=== PATIENT | female | born 1935 | race Caucasian/White ===

== ENCOUNTER 2017-09-21 10:45 | Inpatient (IN) | payer MEDICARE ==
[2017-09-21 11:17] LABS: #Lymphocytes 1.5 thou/uL (1.20-3.40); #Monocytes 0.7 thou/uL (0.11-0.59); #Neutrophils 6.5 thou/uL (1.40-6.50); %Basophils 0.4 % (0.0-1.0); %Eosinophils 0.2 % (0.0-10.0); %Lymphocytes 16.9 % (21.0-51.0); %Monocytes 7.7 % (0.0-10.0); %Neutrophils 74.8 % (42.0-75.0); Hemoglobin 13.6 g/dL (12.0-16.0); Mean Corpuscular HGB CONC 31.6 g/dL (32.0-36.0); Mean Corpuscular Hemoglobin 29.6 pg (27.0-31.0); Mean Corpuscular Volume 93.8 fl (81.0-99.0); Mean Platelet Volume 6.3 fL (7.4-10.4); Platelet Count 369 thou/uL (130-400); Red Blood Cell (RBC) Count 4.61 mill/uL (4.20-5.40); White Blood Cell (WBC) Count 8.7 thou/uL (4.8-10.8)
[2017-09-21 11:38] LABS: ALT (SGPT) 37 U/L (8-55); AST (SGOT) 28 U/L (5-34); Albumin 3.8 g/dL (3.4-4.8); Alkaline Phosphatase 135 U/L (40-150); Anion Gap 19 mmol/L (10-20); BUN (Urea Nitrogen) 19 mg/dL (9.8-20.1); Bilirubin, Total 0.7 mg/dL (0.2-1.2); Calc. Creatinine Clearance 0 mL/min (70-130); Calcium 8.6 mg/dL (7.8-10.44); Carbon Dioxide 17 mmol/L (23-31); Chloride 106 mmol/L (98-107); Estimated GFR-MDRD 45; Globulin 3.4 g/dL (2.4-3.5); Glucose 210 mg/dL (83-110); Potassium 5.3 mmol/L (3.5-5.1); Protein, Total 7.2 g/dL (6.0-8.3); Sodium 137 mmol/L (136-145)
[2017-09-21 11:43] LABS: CKMB 5.2 ng/mL (0-6.6); Troponin I 0.079 ng/mL (< 0.028)
--- NOTE | 2017-09-21 11:44 | RAD ---
CHEST ONE VIEW: HISTORY: An 82-year-old female with a history of dyspnea, shortness of breath, and lower extremity swelling. FINDINGS: There is cardiomegaly with bilateral vascular congestion, interstitial edema, and small pleural effus ions, evidence for congestive heart failure with minimal pulmonary edema. There is a deformity of th e left humeral neck region, which has the appearance of old trauma. Bone demineralization. IMPRESSION: Evidence for congestive heart failure and interstitial pulmonary edema. Continued short term followup for clearing or stability. POS: [facility]
[2017-09-21] MEDS ORDERED: Nitroglycerin 2% Ointment 1 INCH/1 GM Packet ONE (12:29)
[2017-09-21] MEDS ORDERED: Furosemide 40 MG/4 ML VIAL ONE (12:29)
[2017-09-21 15:06] LABS: Troponin I 0.088 ng/mL (< 0.028)
[2017-09-21] MEDS ORDERED: Loperamide HCl 2 MG CAP PO PRN (16:18)
[2017-09-21] MEDS ORDERED: Dextrose 50% Abboject 50 ML SYRINGE SLOW IVP PRN (16:24)
[2017-09-21] MEDS ORDERED: Dextrose 5% in Water 1,000 ML IV PRN (16:24)
[2017-09-21 18:12] LABS: Troponin I 0.088 ng/mL (< 0.028)
[2017-09-21] MEDS: Heparin 5,000 UNITS/ML VIAL SC SCH (21:21)
[2017-09-21] MEDS: Famotidine 20 MG TAB PO SCH (21:21)
[2017-09-22 05:51] LABS: Anion Gap 18 mmol/L (10-20); BUN (Urea Nitrogen) 21 mg/dL (9.8-20.1); Calc. Creatinine Clearance 31 mL/min (70-130); Calcium 8.2 mg/dL (7.8-10.44); Carbon Dioxide 19 mmol/L (23-31); Chloride 107 mmol/L (98-107); Estimated GFR-MDRD 49; Glucose 149 mg/dL (83-110); Potassium 4.2 mmol/L (3.5-5.1); Sodium 140 mmol/L (136-145)
[2017-09-22] MEDS: Furosemide 40 MG/4 ML VIAL SLOW IVP SCH ×2 (05:51→15:23)
--- NOTE | 2017-09-22 08:10 | HP ---
DATE OF ADMISSION: 09/21/2017 CHIEF COMPLAINT: Shortness of breath and fatigue. HISTORY OF PRESENT ILLNESS: The patient is an 82-year-old female who presented with 1 week history of peripheral edema along with shortness of breath, which was gradually getting worse. She became more fatigued. Her appetite is basically gone. She did not eat any breakfast today, because she was not hungry. She had some chest pains on and off lasting less than a minute during this week, but nothing major according to her. She did not have any clammy skin, nausea or vomiting, but she s tarted having some diarrhea just prior to this in the emergency room evaluation. She came to the ER for diagnostic evaluation and looking physician's attention. [facility] son, Mr. Diego Rajput. PAST MEDICAL HISTORY: Positive for: 1. Rheumatoid arthritis. 2. Diabetes mellitus type 2. 3. Osteoporosis. 4. Chronic diarrhea. 5. Hypertension. 6. Coronary artery disease and status post stenting. PAST SURGICAL HISTORY: 1. Cataract surgery. 2. Foot surgery. 3. Cardiac catheterization with stenting. MEDICATIONS: Fluoxetine 20 mg once a day, Imodium A-D p.r.n. for diarrhea, Enbrel subcutaneous I bel ieve it is every 2 weeks injection, Prolia twice a year, Hydroxychloroquine 200 mg once a day, aspiri n 81 mg once a day, folic acid 400 mg once a day, Synthroid 50 mcg once a day, vitamin D 2000 units 1 daily, multivitamin 1 a day, lisinopril 30 mg once a day. ALLERGIES: None. FAMILY HISTORY: Her father had CVA. Her mother had diabetes. Both of them gone. SOCIAL HISTORY: She still smokes. She smoked for a very very long time since her son remembers. Asmita amos smokes usually about 10 cigarettes per day, now she is down to 2. REVIEW OF SYSTEMS: Constitutional: Negative for fever and chills. Eyes: Negative for eye pain and eye discharge. ENT: Negative for nasal congestion and epistaxis. Cardiovascular: Positive for ch est pains and some palpitations. Respiratory: Positive for shortness of breath and positive for cou gh. Gastrointestinal: Positive for diarrhea. Negative for nausea, vomiting, abdominal pain. Muscu loskeletal: Positive for pain in both hands and feet. Skin: Negative for rash or erythema. Neurol ogic: Negative for syncope and dizziness. Endocrine: Positive for diabetes mellitus. Hemolymphati c: Negative for easy bruising or clotting abnormalities. Psychiatric: Negative for depression or anxiety. PHYSICAL EXAMINATION: VITAL SIGNS: Her blood pressure is 174/72, temperature is 97.9, pulse is 84, respiratory rate is 17, O2 saturations 100% on room air. HEENT: Head is atraumatic, normocephalic. She looks emaciated. Eyes: PERRLA. Sclerae nonicteric. Oral mucosa is moist. NECK: Supple. Mild JVDs 1+ bilaterally. LUNGS: Breath sounds, slightly diminished at both bases with few crackles, no wheezing, no rales. HEART: S1, S2, regular. No S3, no S4. ABDOMEN: Soft, nontender, nondistended. Bowel sounds are present, no organomegaly. EXTREMITIES: Approximately 2+ peripheral edema around both ankles, nothing above the knee level. Pu lses are diminished on both tibialis posterior and dorsalis pedis arteries. NEUROLOGICAL EXAMINATION: Showed alert and oriented x4. There is not any sensorimotor deficits pres ent. Cranial nerves are intact. MUSCULOSKELETAL: Evaluation showed severely supinated fingers in both hands, contracted. LABORATORY DATA AND X-RAY FINDINGS: Showed a white count of 8.7, hemoglobin 13.6, hematocrit 43.2, p latelet count is 369. The rest of CBC within normal limits. Chemistry showed sodium of 137, potassi um 5.3, chloride 106, CO2 17, BUN 19, creatinine 1.16, glucose 210. Troponin I 0.079 and 0.088. BNP 1405.6 and the rest of chemistry within normal limits. EKG showed normal sinus rhythm with left axi s deviation and nonspecific ST and T-wave abnormalities with prolonged QT at 432, corrected to the ri ght is 492. Chest x-ray showed some pulmonary congestion and mild cardiomegaly. IMPRESSION: 1. New onset of congestive heart failure. 2. History of coronary artery disease with stenting. 3. Rheumatoid arthritis. 4. Chronic diarrhea. 5. Osteoporosis. 6. Diabetes mellitus type 2. 7. Chronic smoker. PLAN: Full admission to telemetry floor. Condition is fair. Activity is ad libitum. Clinically, she looks good. She is going to be DNR. This was discussed with her and her son who is present duri ng my visit in the room. We will Hep-Lock her, put her on IV Lasix, she had one dose in the emergenc y room. She will be on 40 mg IV push q.12 hours and she will be on aspirin 81 mg daily. We will sta rt her on her lisinopril 30 mg once a day and she will have p.r.n. Imodium for her chronic diarrhea. Also, we will have additional 2 sets of cardiac enzymes and echocardiogram. Senior Peoplesoft Developer, Dr. Sneha gillette will be consulted and will have walking program started.
[2017-09-22] MEDS: Aspirin 81 mg Enteric Coated Tablet PO SCH (09:15)
[2017-09-22] MEDS: Lisinopril 20 MG TAB PO SCH (09:15)
[2017-09-22] MEDS: Heparin 5,000 UNITS/ML VIAL SC SCH ×3 (09:16→23:01)
[2017-09-22] MEDS ORDERED: Diabetic Tussin 200 MG/10 ML UDCUP PO PRN (11:34)
[2017-09-22] MEDS ORDERED: hydrALAZINE 20 MG/ML VIAL SLOW IVP PRN (11:34)
[2017-09-22] MEDS ORDERED: Sodium Chloride 0.65% Nasal 44 ML BOT EA NARE PRN (11:34)
[2017-09-22] MEDS ORDERED: Temazepam 15 MG CAP PO PRN (11:34)
[2017-09-22] MEDS ORDERED: Eucerin (Mineral Oil/Petrolatum,White) 30 gm Jar TOP PRN (11:34)
[2017-09-22] MEDS ORDERED: Artificial Tears 18 DROP/0.9 ML EA EYE PRN (11:34)
[2017-09-22] MEDS ORDERED: traMADol HCl 50 MG TAB PO PRN (11:34)
[2017-09-22] MEDS ORDERED: Loratadine 10 MG TAB PO PRN (11:34)
[2017-09-22] MEDS ORDERED: Mag-Al 1200 mg/1200 mg/30 ML UDCUP PO PRN (11:34)
[2017-09-22] MEDS ORDERED: Ondansetron ODT 4 MG TAB PO PRN (11:34)
[2017-09-22] MEDS ORDERED: Chloraseptic Spray 180 ml Bottle PO PRN (11:34)
[2017-09-22] MEDS ORDERED: Acetaminophen 325 MG TAB PO PRN (11:34)
[2017-09-22] MEDS ORDERED: Senokot 8.6 MG TAB PO PRN (11:34)
[2017-09-22] MEDS ORDERED: Ondansetron HCl/PF 4 MG/2 ML Vial IVP PRN (11:34)
[2017-09-22] MEDS ORDERED: Milk Of Magnesia 30 ML UDCUP PO PRN (11:34)
--- NOTE | 2017-09-22 12:27 | PDOC.PN ---
- Subjective Encounter Start Date: 09/22/17 Encounter Start Time: 08:15 -: old records requested/rev Patient seen and examined. No new complaints. No overnight events - Objective Resuscitation Status: Resuscitation Status DNR:Do Not Resuscitate MAR Reviewed: Yes Vital Signs & Weight: Vital Signs (12 hours) Temp Pulse Resp BP Pulse Ox 09/22/17 07:30 97.9 F 80 18 92 L 09/22/17 07:15 97.9 F 80 18 168/75 H 92 L 09/22/17 03:15 97.6 F 84 18 177/79 H 98 Weight Admit Weight 103 lb Weight 102 lb 9.6 oz I&O: 09/21/17 09/22/17 09/23/17 06:59 06:59 06:59 Intake Total 260 Output Total 270 Balance -10 Result Diagrams: 09/21/17 11:13 09/22/17 05:22 Additional Labs: Accuchecks 09/21/17 09/21/17 20:08 16:33 POC Glucose 154 H 148 H Phys Exam - Physical Examination Constitutional: NAD HEENT: PERRLA, moist MMs, sclera anicteric Neck: no JVD, supple Respiratory: no wheezing, no rales, no rhonchi Cardiovascular: RRR, no significant murmur, no rub Gastrointestinal: soft, non-tender, no distention, positive bowel sounds Musculoskeletal: pulses present, edema present Neurological: non-focal, normal sensation Lymphatic: no nodes Psychiatric: normal affect Skin: no rash, normal turgor Dx/Plan (1) Acute CHF Code(s): I50.9 - HEART FAILURE, UNSPECIFIED Status: Acute (2) Demand ischemia Code(s): I24.8 - OTHER FORMS OF ACUTE ISCHEMIC HEART DISEASE Status: Acute (3) Tobacco abuse Code(s): Z72.0 - TOBACCO USE Status: Acute (4) CKD (chronic kidney disease) stage 3, GFR 30-59 ml/min Code(s): N18.3 - CHRONIC KIDNEY DISEASE, STAGE 3 (MODERATE) Status: Chronic (5) Diabetes type 2, controlled Code(s): E11.9 - TYPE 2 DIABETES MELLITUS WITHOUT COMPLICATIONS Status: Chronic (6) Osteoporosis Code(s): M81.0 - AGE-RELATED OSTEOPOROSIS W/O CURRENT PATHOLOGICAL FRACTURE Status: Chronic (7) Rheumatoid arthritis Code(s): M06.9 - RHEUMATOID ARTHRITIS, UNSPECIFIED Status: Chronic - Plan cont current plan of care, plan discussed w/ family * continue diuresis * echo pending * may need discharge planning to snu * medication reviewed as below * symptomatic treatment * based on echo will decide further plan * discussed with family. Review of Systems - Review of Systems ENT: negative: Ear Pain, Ear Discharge, Nose Pain, Nose Discharge, Nose Congestion, Mouth Pain, Mouth Swelling, Throat Pain, Throat Swelling, Other Respiratory: negative: Cough, Dry, Shortness of Breath, Hemoptysis, SOB with Excertion, Pleuritic Pain, Sputum, Wheezing Cardiovascular: negative: chest pain, palpitations, orthopnea, paroxysmal nocturnal dyspnea, edema, light headedness, other Gastrointestinal: negative: Nausea, Vomiting, Abdominal Pain, Diarrhea, Constipation, Melena, Hematochezia, Other Genitourinary: negative: Dysuria, Frequency, Incontinence, Hematuria, Retention , Other Musculoskeletal: negative: Neck Pain, Shoulder Pain, Arm Pain, Back Pain, Hand Pain, Leg Pain, Foot Pain, Other - Medications/Allergies Allergies/Adverse Reactions: Allergies Allergy/AdvReac Type Severity Reaction Status Date / Time No Known Allergies Allergy Unverified 09/21/17 16:57 Medications: Current Medications Acetaminophen (Tylenol) 650 mg PO Q4H PRN PRN Reason: Headache/Fever or Mild Pain Al Hydroxide/Mg Hydroxide (Maalox) 15 ml PO Q4H PRN PRN Reason: Heartburn or Indigestion Artificial Tears (Tears Naturale) 0 drop EA EYE PRN PRN PRN Reason: Dry Eyes Aspirin (Ecotrin) 81 mg PO DAILY [facility] Last Admin: 09/22/17 09:15 Dose: 81 mg Dextrose/Water (Dextrose 50%) 25 gm SLOW IVP PRN PRN PRN Reason: Hypoglycemia Famotidine (Pepcid) 20 mg PO 2100 [facility] Last Admin: 09/21/17 21:21 Dose: 20 mg Furosemide (Lasix) 40 mg SLOW IVP 0600,1400 [facility] Last Admin: 09/22/17 05:51 Dose: 40 mg Glucagon (Glucagon) 1 mg IM PRN PRN PRN Reason: Hypoglycemia Guaifenesin (Robitussin Sf) 200 mg PO Q4H PRN PRN Reason: Cough Heparin Sodium (Porcine) (Heparin) 5,000 units SC TID [facility] Last Admin: 09/22/17 09:16 Dose: 5,000 units Hydralazine HCl (Apresoline) 10 mg SLOW IVP Q4H PRN PRN Reason: Systolic BP > 180 Dextrose/Water (D5w) 1,000 mls @ 0 mls/hr IV .Q0M PRN; As Directed PRN Reason: Hypoglycemia Insulin Human Lispro (Humalog) 0 units SC .MILD SLIDING SCALE PRN PRN Reason: Mild Correctional Scale Lisinopril (Zestril) 30 mg PO DAILY [facility] Last Admin: 09/22/17 09:15 Dose: 30 mg Loperamide HCl (Imodium) 2 mg PO PRN PRN PRN Reason: Diarrhea/Loose Stools Last Admin: 09/21/17 17:41 Dose: 2 mg Loratadine (Claritin) 10 mg PO DAILYPRN PRN PRN Reason: Sinus Symptoms Magnesium Hydroxide (Milk Of Magnesium) 30 ml PO DAILYPRN PRN PRN Reason: Constipation Mineral Oil/White Petrolatum (Eucerin Cream) 0 gm TOP BIDPRN PRN PRN Reason: Dry Skin Ondansetron HCl (Zofran Odt) 4 mg PO Q6H PRN PRN Reason: Nausea/Vomiting Ondansetron HCl (Zofran) 4 mg IVP Q6H PRN PRN Reason: Nausea/Vomiting Phenol (Chloraseptic [place] 180 Ml Bot) 0 ml PO PRN PRN PRN Reason: Sore Throat Senna (Senokot) 2 tab PO HSPRN PRN PRN Reason: Constipation Sodium Chloride ([place] Nasal [place] 0.65%) 0 ml EA NARE QIDPRN PRN PRN Reason: Nasal Congestion Temazepam (Restoril) 15 mg PO HSPRN PRN PRN Reason: Insomnia Tramadol HCl (Ultram) 50 mg PO Q4H PRN PRN Reason: Moderate Pain (4-6)
[2017-09-22] MEDS: HumaLOG 300 UNITS/3 ML VIAL SC PRN (17:26)
--- NOTE | 2017-09-22 18:24 | CON ---
DATE OF SERVICE: 09/22/2017 REASON FOR CONSULTATION: Shortness of breath. HISTORY OF PRESENT ILLNESS: Ms. Rajput is a very pleasant 82-year-old white female who comes to the ospital for increasing shortness of breath and peripheral edema. She states that for the last week h as been getting worse gradually to the point where she had to come into the hospital yesterday. She has not been able to eat very well because of bloated abdomen and lower extremity edema. She has had some episodes of chest pain, which were described as a minute at that time, in random times. She britt s a history of coronary artery disease. She had a stent placed about 12 years ago in [facility]. S he was at home and apparently she had a syncopal spell. She was brought into the hospital with tropo nins drawn and they were elevated, so was taken to the catheterization lab and a stent was placed in an unknown artery. She never followed up with any pressurised container filler since then. She did the pressurised container filler in the hospital. PAST MEDICAL HISTORY: 1. Rheumatoid arthritis. 2. Type 2 diabetes. 3. Osteoporosis. 4. Chronic diarrhea. 5. Hypertension. 6. Coronary artery disease as above. 7. Tobacco abuse. PAST SURGICAL HISTORY: 1. Cataract surgery. 2. Foot surgery. 3. Cardiac catheterization with stenting as above. OUTPATIENT MEDICATIONS: Include, 1. Fluoxetine. 2. Imodium A-D 3. Enbrel. 4. Prolia twice a year. 5. Hydroxychloroquine. 6. Aspirin 81 day. 7. Folic acid. 8. Synthroid 50 mcg a day. 9. Vitamin D. 10. Multivitamin daily. 11. Lisinopril 30 mg a day. ALLERGIES: No known drug allergies. FAMILY HISTORY: Father with CVA. Mother with diabetes. SOCIAL HISTORY: Smoked for many, many years, about 10 cigarettes to half pack daily much less since she has been short of breath about two a day. REVIEW OF SYSTEMS: A 12-point review of systems was done and is all negative unless stated in the h istory of present illness. PHYSICAL EXAMINATION: VITAL SIGNS: Temperature 97.6, pulse 83, respiration rate 20, satting 92% on room air, blood pressur e 166/77. GENERAL: Awake, alert, oriented x3, in no distress. HEENT: Normocephalic and atraumatic. NECK: Supple. LUNGS: Mild crackles at bilateral bases. CARDIOVASCULAR: S1, S2, no S3, S4. There is a grade 3/6 systolic murmur at the right upper sternal border that radiates to the rest of the precordium mid to late peaking. ABDOMEN: Soft, positive bowel sounds. EXTREMITIES: No edema. SKIN: Warm and dry. LABORATORY WORK: Reviewed. CBC was unremarkable. Chemistry was unremarkable except for a creatinin e of 1.16, was better at 1.07 now. GFR was 49. Troponin has been in the indeterminate range at 0.07 9, 0.08, 0.08. CK-MB was 5.2. BNP was 14,005. EKG was reviewed. Echocardiogram was reviewed. Chest x-ray was reviewed showed heart failure, pulmonary edema. ASSESSMENT AND PLAN: 1. New onset systolic heart failure. 2. Acute on chronic systolic heart failure. 3. Coronary artery disease by history. 4. Tobacco abuse. 5. Aortic valve stenosis. 6. LV function at 30%-35%. PLAN: 1. Continue IV diuresis for at least one more day, switch to p.o. tomorrow. 2. We will start on a statin drug as she has a history of coronary artery disease. She is to be on aspirin, statin, HARJIT inhibitor. We would hold off on a beta delmi right now. We will plan on star ting tomorrow if her blood pressure allows. 3. If her blood pressure still allows, we will need Aldactone as well. 4. Tobacco cessation counseling. 5. Since her EF is less than 35%. She will need a LifeVest for primary prevention of sudden cardiac . I spoke with her and her family about this and she agrees. 6. I offered risk stratification with a heart catheterization that she most likely has multivessel d isease and currently she is refusing. She tells me that she is ready to go. She does not want anyth ing invasive at that time. She will take the medicine that we offer her and she will do the LifeVest for now and she may even consider doing a defibrillator later on, but she does not want to have any heart catheterization, stenting or anything that would until needing bypass surgery in the near futur e. I think this is reasonable. However, this would still be offered to her when we see her as an ou tpatient. 7. Encourage use of LifeVest. She states she is on board with that. Thank you for letting us participate in the care of your patient. We will follow. She should be royal dy to be discharged home in the next 24-48 hours.
[2017-09-22] MEDS: Famotidine 20 MG TAB PO SCH (23:04)
[2017-09-23] MEDS: Furosemide 40 MG/4 ML VIAL SLOW IVP SCH (05:43)
[2017-09-23] MEDS ORDERED: ADALIMUMAB SC SCH (08:30)
[2017-09-23] MEDS: Aspirin 81 mg Enteric Coated Tablet PO SCH (09:56)
[2017-09-23] MEDS: Glimepiride 2 MG TAB PO SCH (09:56)
[2017-09-23] MEDS: Furosemide 20 MG TAB PO SCH ×2 (09:57→14:51)
[2017-09-23] MEDS: Folic Acid 1 MG TAB PO SCH (09:57)
[2017-09-23] MEDS: Multivitamin W/ Minerals 1 TAB PO SCH (09:57)
[2017-09-23] MEDS: Hydroxychloroquine Sulfate 200 MG TAB PO SCH (09:57)
[2017-09-23] MEDS: Heparin 5,000 UNITS/ML VIAL SC SCH ×2 (09:58→21:41)
[2017-09-23] MEDS: Cyanocobalamin (Vitamin B-12) 1,000 MCG TAB PO SCH (09:58)
[2017-09-23] MEDS: FLUoxetine HCl 20 MG CAP PO SCH (09:58)
[2017-09-23] MEDS: Lisinopril 20 MG TAB PO SCH (10:10)
[2017-09-23] MEDS: Megestrol Acetate 40 MG TAB PO SCH ×2 (10:11→21:42)
--- NOTE | 2017-09-23 11:02 | PDOC.PN ---
- Subjective Encounter Start Date: 09/23/17 Encounter Start Time: 08:20 Patient seen and examined. No new complaints. No overnight events feels better, less dyspnea - Objective Resuscitation Status: Resuscitation Status DNR:Do Not Resuscitate MAR Reviewed: Yes Vital Signs & Weight: Vital Signs (12 hours) Temp Pulse Resp BP BP Pulse Ox 09/23/17 10:10 164/74 H 09/23/17 07:30 97.3 F L 80 16 164/74 H 94 L 09/23/17 04:30 97.6 F 77 18 161/72 H 93 L Weight Admit Weight 103 lb Weight 99 lb 12.8 oz I&O: 09/22/17 09/23/17 09/24/17 06:59 06:59 06:59 Intake Total 260 240 Output Total 270 3 Balance -10 237 Result Diagrams: 09/21/17 11:13 09/22/17 05:22 Additional Labs: Accuchecks 09/23/17 09/22/17 09/22/17 05:34 16:24 10:21 POC Glucose 150 H 228 H 207 H 09/22/17 05:28 POC Glucose 136 H Radiology Reviewed by me: Yes (echo report) EKG Reviewed by me: Yes Phys Exam - Physical Examination Constitutional: NAD HEENT: PERRLA, moist MMs, sclera anicteric Neck: no JVD, supple Respiratory: no wheezing, no rales, no rhonchi Cardiovascular: RRR, no rub SM+ Gastrointestinal: soft, non-tender, no distention, positive bowel sounds Musculoskeletal: no edema, pulses present Neurological: non-focal, normal sensation, moves all 4 limbs Psychiatric: normal affect, A&O x 3 Skin: no rash, normal turgor Dx/Plan (1) Acute combined systolic and diastolic heart failure Code(s): I50.41 - ACUTE COMBINED SYSTOLIC AND DIASTOLIC (CONGESTIVE) HRT FAIL Status: Acute (2) Demand ischemia Code(s): I24.8 - OTHER FORMS OF ACUTE ISCHEMIC HEART DISEASE Status: Acute (3) Tobacco abuse Code(s): Z72.0 - TOBACCO USE Status: Acute (4) CKD (chronic kidney disease) stage 3, GFR 30-59 ml/min Code(s): N18.3 - CHRONIC KIDNEY DISEASE, STAGE 3 (MODERATE) Status: Chronic (5) Diabetes type 2, controlled Code(s): E11.9 - TYPE 2 DIABETES MELLITUS WITHOUT COMPLICATIONS Status: Chronic (6) Osteoporosis Code(s): M81.0 - AGE-RELATED OSTEOPOROSIS W/O CURRENT PATHOLOGICAL FRACTURE Status: Chronic (7) Rheumatoid arthritis Code(s): M06.9 - RHEUMATOID ARTHRITIS, UNSPECIFIED Status: Chronic (8) Moderate aortic regurgitation Code(s): I35.1 - NONRHEUMATIC AORTIC (VALVE) INSUFFICIENCY Status: Acute (9) Moderate tricuspid regurgitation Code(s): I07.1 - RHEUMATIC TRICUSPID INSUFFICIENCY Status: Acute (10) Physical deconditioning Code(s): R53.81 - OTHER MALAISE Status: Acute (11) Anxiety and depression Code(s): F41.9 - ANXIETY DISORDER, UNSPECIFIED; F32.9 - MAJOR DEPRESSIVE DISORDER, SINGLE EPISODE, UNSPECIFIED Status: Chronic (12) CAD (coronary artery disease) Code(s): I25.10 - ATHSCL HEART DISEASE OF [place] CORONARY ARTERY W/O ANG PCTRS Status: Chronic (13) Hypothyroidism Code(s): E03.9 - HYPOTHYROIDISM, UNSPECIFIED Status: Chronic (14) Protein-calorie malnutrition, moderate Code(s): E44.0 - MODERATE PROTEIN-CALORIE MALNUTRITION Status: Chronic - Plan cont current plan of care, plan discussed w/ family, PT/OT, clinical social worker * pt is not interested in cardiac cath * life vest is OK per pt * will change lasix 20 mg po bid * add coreg 3.125 mg po bid * add lisnopril 2.5 mg po daily and aldactone 25 mg po daily * will repeat labs tomorrow * medication reviewed as below * symptomatic treatment * discussed with son. Review of Systems - Review of Systems ENT: negative: Ear Pain, Ear Discharge, Nose Pain, Nose Discharge, Nose Congestion, Mouth Pain, Mouth Swelling, Throat Pain, Throat Swelling, Other Respiratory: negative: Cough, Dry, Shortness of Breath, Hemoptysis, SOB with Excertion, Pleuritic Pain, Sputum, Wheezing Cardiovascular: negative: chest pain, palpitations, orthopnea, paroxysmal nocturnal dyspnea, edema, light headedness, other Gastrointestinal: negative: Nausea, Vomiting, Abdominal Pain, Diarrhea, Constipation, Melena, Hematochezia, Other Genitourinary: negative: Dysuria, Frequency, Incontinence, Hematuria, Retention , Other Musculoskeletal: negative: Neck Pain, Shoulder Pain, Arm Pain, Back Pain, Hand Pain, Leg Pain, Foot Pain, Other Skin: negative: Rash, Lesions, [place], Bruising, Other - Medications/Allergies Allergies/Adverse Reactions: Allergies Allergy/AdvReac Type Severity Reaction Status Date / Time No Known Allergies Allergy Unverified 09/21/17 16:57 Medications: Current Medications Acetaminophen (Tylenol) 650 mg PO Q4H PRN PRN Reason: Headache/Fever or Mild Pain Al Hydroxide/Mg Hydroxide (Maalox) 15 ml PO Q4H PRN PRN Reason: Heartburn or Indigestion Artificial Tears (Tears Naturale) 0 drop EA EYE PRN PRN PRN Reason: Dry Eyes Aspirin (Ecotrin) 81 mg PO DAILY [facility] Last Admin: 09/23/17 09:56 Dose: 81 mg Atorvastatin Calcium (Lipitor) 10 mg PO [facility] Carvedilol (Coreg) 3.125 mg PO BID-[facility] Cholecalciferol (Vitamin D3) 2,000 units PO DAILY [facility] Last Admin: 09/23/17 09:57 Dose: 2,000 units Cyanocobalamin (Vitamin B-12) 1,000 mcg PO DAILY [facility] Last Admin: 09/23/17 09:58 Dose: 1,000 mcg Dextrose/Water (Dextrose 50%) 25 gm SLOW IVP PRN PRN PRN Reason: Hypoglycemia Famotidine (Pepcid) 20 mg PO 2100 [facility] Last Admin: 09/22/17 23:04 Dose: 20 mg Fluoxetine HCl (Prozac) 20 mg PO DAILY [facility] Last Admin: 09/23/17 09:58 Dose: 20 mg Folic Acid (Folvite) 1 mg PO DAILY [facility] Last Admin: 09/23/17 09:57 Dose: 1 mg Furosemide (Lasix) 20 mg PO 0900,1400 [facility] Last Admin: 09/23/17 09:57 Dose: 20 mg Glimepiride (Amaryl) 2 mg PO DAILY [facility] Last Admin: 09/23/17 09:56 Dose: 2 mg Glucagon (Glucagon) 1 mg IM PRN PRN PRN Reason: Hypoglycemia Guaifenesin (Robitussin Sf) 200 mg PO Q4H PRN PRN Reason: Cough Heparin Sodium (Porcine) (Heparin) 5,000 units SC BID [facility] Last Admin: 09/23/17 09:58 Dose: 5,000 units Hydralazine HCl (Apresoline) 10 mg SLOW IVP Q4H PRN PRN Reason: Systolic BP > 180 Hydroxychloroquine Sulfate (Plaquenil) 200 mg PO DAILY [facility] Last Admin: 09/23/17 09:57 Dose: 200 mg Dextrose/Water (D5w) 1,000 mls @ 0 mls/hr IV .Q0M PRN; As Directed PRN Reason: Hypoglycemia Insulin Human Lispro (Humalog) 0 units SC .MILD SLIDING SCALE PRN PRN Reason: Mild Correctional Scale Last Admin: 09/22/17 17:26 Dose: 3 unit Iron/Minerals/Multivitamins (Theragran M) 1 tab PO DAILY [facility] Last Admin: 09/23/17 09:57 Dose: 1 tab Levothyroxine Sodium (Synthroid) 50 mcg PO 0600 [facility] Lisinopril (Zestril) 30 mg PO DAILY [facility] Last Admin: 09/23/17 10:10 Dose: 30 mg Loperamide HCl (Imodium) 2 mg PO PRN PRN PRN Reason: Diarrhea/Loose Stools Last Admin: 09/21/17 17:41 Dose: 2 mg Loratadine (Claritin) 10 mg PO DAILYPRN PRN PRN Reason: Sinus Symptoms Magnesium Hydroxide (Milk Of Magnesium) 30 ml PO DAILYPRN PRN PRN Reason: Constipation Megestrol Acetate (Megace) 40 mg PO BID [facility] Last Admin: 09/23/17 10:11 Dose: 40 mg Metformin HCl (Glucophage Xr) 500 mg PO QPM-WM [facility] Mineral Oil/White Petrolatum (Eucerin Cream) 0 gm TOP BIDPRN PRN PRN Reason: Dry Skin Ondansetron HCl (Zofran Odt) 4 mg PO Q6H PRN PRN Reason: Nausea/Vomiting Ondansetron HCl (Zofran) 4 mg IVP Q6H PRN PRN Reason: Nausea/Vomiting (Adalimumab [Humira (Pen] [Hm Med]) 0 each SC Q14D@0830 [facility] Phenol (Chloraseptic [place] 180 Ml Bot) 0 ml PO PRN PRN PRN Reason: Sore Throat Senna (Senokot) 2 tab PO HSPRN PRN PRN Reason: Constipation Sodium Chloride ([place] Nasal [place] 0.65%) 0 ml EA NARE QIDPRN PRN PRN Reason: Nasal Congestion Spironolactone (Aldactone) 25 mg PO QAM-[facility] Temazepam (Restoril) 15 mg PO HSPRN PRN PRN Reason: Insomnia Tramadol HCl (Ultram) 50 mg PO Q4H PRN PRN Reason: Moderate Pain (4-6)
[2017-09-23] MEDS: HumaLOG 300 UNITS/3 ML VIAL SC PRN ×2 (11:47→17:29)
[2017-09-23] MEDS: metFORMIN XR 500 MG TAB PO SCH (17:29)
[2017-09-23] MEDS: Carvedilol 3.125 MG TAB PO SCH (17:29)
--- NOTE | 2017-09-23 19:10 | PDOC.CTH ---
Cardiology Progress Note - Subjective She is doing well. She is able to lay flat now. She has spoken with her family and they want to proceed with C. - Objective Vital Signs Temp Pulse Pulse Pulse Resp BP BP 09/23/17 17:03 86 79 156/70 H 09/23/17 16:25 97.6 F 75 18 09/23/17 11:50 97.7 F 84 18 09/23/17 10:10 164/74 H 09/23/17 07:30 97.3 F L 80 16 BP BP Pulse Ox Pulse Ox Pulse Ox 09/23/17 17:03 139/74 94 L 96 09/23/17 16:25 159/71 H 95 09/23/17 11:50 164/77 H 93 L 09/23/17 10:10 09/23/17 07:30 164/74 H 94 L Admit Weight 103 lb Weight 99 lb 12.8 oz 09/22/17 09/23/17 09/24/17 06:59 06:59 06:59 Intake Total 260 240 Output Total 270 3 Balance -10 237 - Physical Examination General/Neuro: alert & oriented x3, NAD Neck: no JVD present Lungs: unlabored respirations Heart: RRR Abdomen: NT/ND Extremities: + edema B (Trace) - Telemetry Telemetry Rhythm: NSR - Labs Result Diagrams: 09/21/17 11:13 09/22/17 05:22 Troponin/CKMB CK-MB (CK-2) 5.2 ng/mL (0-6.6) 09/21/17 11:13 Troponin I 0.088 ng/mL (< 0.028) H 09/21/17 17:31 - Assessment/Plan 1. New onset CM EF at 30-35% 2. CAD 3. Acute on chronic systolic heart failure, improving. PLAN: - Continue IV lasix. - Lifevest set up. - Will plan for LHC on Monday. Risks and benefits have been discussed with her and her family, risks including but not limited to stroke, [place], , bleeding and need for blood transfusions, need for emergent CABG, need for vascular surgery, limb loss, organ loss, reaction to contrast., They agree to proceed.
[2017-09-23] MEDS: Atorvastatin Calcium 10 MG TAB PO SCH (21:42)
[2017-09-23] MEDS: Famotidine 20 MG TAB PO SCH (21:47)
[2017-09-24] MEDS: Levothyroxine Sodium 50 MCG TAB PO SCH (05:12)
[2017-09-24 06:26] LABS: #Lymphocytes 1.6 thou/uL (1.20-3.40); #Monocytes 0.7 thou/uL (0.11-0.59); #Neutrophils 6.7 thou/uL (1.40-6.50); %Basophils 0.3 % (0.0-1.0); %Eosinophils 0.1 % (0.0-10.0); %Lymphocytes 17.3 % (21.0-51.0); %Monocytes 7.2 % (0.0-10.0); %Neutrophils 75.1 % (42.0-75.0); Hemoglobin 12.7 g/dL (12.0-16.0); Mean Corpuscular HGB CONC 32.1 g/dL (32.0-36.0); Mean Corpuscular Hemoglobin 29.9 pg (27.0-31.0); Mean Corpuscular Volume 93.3 fl (81.0-99.0); Mean Platelet Volume 7.3 fL (7.4-10.4); Platelet Count 244 thou/uL (130-400); RBC Distribution Width 15.2 % (11.5-14.5); Red Blood Cell (RBC) Count 4.24 mill/uL (4.20-5.40); White Blood Cell (WBC) Count 8.9 thou/uL (4.8-10.8)
[2017-09-24 06:41] LABS: Anion Gap 18 mmol/L (10-20); BUN (Urea Nitrogen) 38 mg/dL (9.8-20.1); Calc. Creatinine Clearance 23 mL/min (70-130); Calcium 8.6 mg/dL (7.8-10.44); Carbon Dioxide 22 mmol/L (23-31); Cardiac Risk 3.2 (Less than 4.5); Chloride 103 mmol/L (98-107); Cholesterol 112 mg/dl (< 200 Desired); Estimated GFR-MDRD 36; Glucose 163 mg/dL (83-110); HDL Cholesterol 35 mg/dL (>60 Neg Risk); LDL Cholesterol, Calculated 61 mg/dL; Magnesium 1.8 mg/dL (1.6-2.6); Potassium 3.9 mmol/L (3.5-5.1); Sodium 139 mmol/L (136-145); Triglycerides 82 mg/dL (Less than 150)
[2017-09-24] MEDS: Glimepiride 2 MG TAB PO SCH (08:42)
[2017-09-24] MEDS: Aspirin 81 mg Enteric Coated Tablet PO SCH (08:42)
[2017-09-24] MEDS: Multivitamin W/ Minerals 1 TAB PO SCH (08:42)
[2017-09-24] MEDS: Cyanocobalamin (Vitamin B-12) 1,000 MCG TAB PO SCH (08:42)
[2017-09-24] MEDS: Hydroxychloroquine Sulfate 200 MG TAB PO SCH (08:42)
[2017-09-24] MEDS: Spironolactone 25 MG TAB PO SCH (08:42)
[2017-09-24] MEDS: Carvedilol 3.125 MG TAB PO SCH ×2 (08:42→17:29)
[2017-09-24] MEDS: FLUoxetine HCl 20 MG CAP PO SCH (08:42)
[2017-09-24] MEDS: Folic Acid 1 MG TAB PO SCH (08:42)
[2017-09-24] MEDS: Furosemide 20 MG TAB PO SCH ×2 (08:42→15:17)
[2017-09-24] MEDS: Lisinopril 20 MG TAB PO SCH (08:42)
[2017-09-24] MEDS: Heparin 5,000 UNITS/ML VIAL SC SCH ×2 (08:43→20:27)
[2017-09-24] MEDS: Megestrol Acetate 40 MG TAB PO SCH ×2 (08:43→20:28)
--- NOTE | 2017-09-24 10:24 | PDOC.PN ---
- Subjective Encounter Start Date: 09/24/17 Encounter Start Time: 08:50 pt decided to go for cardiac cath, doing well, no dyspnea, no chest pain Patient seen and examined. No new complaints. No overnight events - Objective Resuscitation Status: Resuscitation Status DNR:Do Not Resuscitate MAR Reviewed: Yes Vital Signs & Weight: Vital Signs (12 hours) Temp Pulse Resp BP BP Pulse Ox 09/24/17 08:42 153/70 H 09/24/17 07:20 98.5 F 69 18 153/70 H 93 L 09/24/17 04:59 98.4 F 60 20 155/70 H 95 Weight Admit Weight 103 lb Weight 99 lb 12.8 oz I&O: 09/23/17 09/24/17 09/25/17 06:59 06:59 06:59 Intake Total 240 240 Output Total 3 Balance 237 240 Result Diagrams: 09/24/17 05:59 09/24/17 05:59 Additional Labs: Accuchecks 09/24/17 09/23/17 09/23/17 03:15 20:44 16:24 POC Glucose 182 H 152 H 231 H 09/23/17 09/23/17 09/22/17 11:25 05:34 20:40 POC Glucose 202 H 150 H 106 EKG Reviewed by me: Yes Phys Exam - Physical Examination Constitutional: NAD HEENT: PERRLA, moist MMs, sclera anicteric Neck: no JVD, supple Respiratory: no wheezing, no rales, no rhonchi Cardiovascular: RRR, no significant murmur, no rub Gastrointestinal: soft, non-tender, no distention, positive bowel sounds Musculoskeletal: no edema, pulses present rheumatoid deformity hand and feet Neurological: non-focal, normal sensation Psychiatric: normal affect, A&O x 3 Skin: no rash, normal turgor Dx/Plan (1) Acute combined systolic and diastolic heart failure Code(s): I50.41 - ACUTE COMBINED SYSTOLIC AND DIASTOLIC (CONGESTIVE) HRT FAIL Status: Acute (2) Demand ischemia Code(s): I24.8 - OTHER FORMS OF ACUTE ISCHEMIC HEART DISEASE Status: Acute (3) Tobacco abuse Code(s): Z72.0 - TOBACCO USE Status: Acute (4) CKD (chronic kidney disease) stage 3, GFR 30-59 ml/min Code(s): N18.3 - CHRONIC KIDNEY DISEASE, STAGE 3 (MODERATE) Status: Chronic (5) Diabetes type 2, controlled Code(s): E11.9 - TYPE 2 DIABETES MELLITUS WITHOUT COMPLICATIONS Status: Chronic (6) Osteoporosis Code(s): M81.0 - AGE-RELATED OSTEOPOROSIS W/O CURRENT PATHOLOGICAL FRACTURE Status: Chronic (7) Rheumatoid arthritis Code(s): M06.9 - RHEUMATOID ARTHRITIS, UNSPECIFIED Status: Chronic (8) Moderate aortic regurgitation Code(s): I35.1 - NONRHEUMATIC AORTIC (VALVE) INSUFFICIENCY Status: Acute (9) Moderate tricuspid regurgitation Code(s): I07.1 - RHEUMATIC TRICUSPID INSUFFICIENCY Status: Acute (10) Physical deconditioning Code(s): R53.81 - OTHER MALAISE Status: Acute (11) Anxiety and depression Code(s): F41.9 - ANXIETY DISORDER, UNSPECIFIED; F32.9 - MAJOR DEPRESSIVE DISORDER, SINGLE EPISODE, UNSPECIFIED Status: Chronic (12) CAD (coronary artery disease) Code(s): I25.10 - ATHSCL HEART DISEASE OF [place] CORONARY ARTERY W/O ANG PCTRS Status: Chronic (13) Hypothyroidism Code(s): E03.9 - HYPOTHYROIDISM, UNSPECIFIED Status: Chronic (14) Protein-calorie malnutrition, moderate Code(s): E44.0 - MODERATE PROTEIN-CALORIE MALNUTRITION Status: Chronic - Plan cont current plan of care * cardiac cath tomorrow * medication reviewed as below * symptomatic treatment * will optimize cardiac medicine as below. Review of Systems - Review of Systems ENT: negative: Ear Pain, Ear Discharge, Nose Pain, Nose Discharge, Nose Congestion, Mouth Pain, Mouth Swelling, Throat Pain, Throat Swelling, Other Respiratory: negative: Cough, Dry, Shortness of Breath, Hemoptysis, SOB with Excertion, Pleuritic Pain, Sputum, Wheezing Cardiovascular: negative: chest pain, palpitations, orthopnea, paroxysmal nocturnal dyspnea, edema, light headedness, other Gastrointestinal: negative: Nausea, Vomiting, Abdominal Pain, Diarrhea, Constipation, Melena, Hematochezia, Other Genitourinary: negative: Dysuria, Frequency, Incontinence, Hematuria, Retention , Other Musculoskeletal: negative: Neck Pain, Shoulder Pain, Arm Pain, Back Pain, Hand Pain, Leg Pain, Foot Pain, Other Skin: negative: Rash, Lesions, Byron, Bruising, Other - Medications/Allergies Allergies/Adverse Reactions: Allergies Allergy/AdvReac Type Severity Reaction Status Date / Time No Known Allergies Allergy Unverified 09/21/17 16:57 Medications: Current Medications Acetaminophen (Tylenol) 650 mg PO Q4H PRN PRN Reason: Headache/Fever or Mild Pain Al Hydroxide/Mg Hydroxide (Maalox) 15 ml PO Q4H PRN PRN Reason: Heartburn or Indigestion Artificial Tears (Tears Naturale) 0 drop EA EYE PRN PRN PRN Reason: Dry Eyes Aspirin (Ecotrin) 81 mg PO DAILY [facility] Last Admin: 09/24/17 08:42 Dose: 81 mg Atorvastatin Calcium (Lipitor) 10 mg PO HS [facility] Last Admin: 09/23/17 21:42 Dose: 10 mg Carvedilol (Coreg) 3.125 mg PO BID-[facility] Last Admin: 09/24/17 08:42 Dose: 3.125 mg Cholecalciferol (Vitamin D3) 2,000 units PO DAILY [facility] Last Admin: 09/24/17 08:42 Dose: 2,000 units Cyanocobalamin (Vitamin B-12) 1,000 mcg PO DAILY [facility] Last Admin: 09/24/17 08:42 Dose: 1,000 mcg Dextrose/Water (Dextrose 50%) 25 gm SLOW IVP PRN PRN PRN Reason: Hypoglycemia Famotidine (Pepcid) 20 mg PO 2100 [facility] Last Admin: 09/23/17 21:47 Dose: 20 mg Fluoxetine HCl (Prozac) 20 mg PO DAILY [facility] Last Admin: 09/24/17 08:42 Dose: 20 mg Folic Acid (Folvite) 1 mg PO DAILY [facility] Last Admin: 09/24/17 08:42 Dose: 1 mg Furosemide (Lasix) 20 mg PO 0900,1400 [facility] Last Admin: 09/24/17 08:42 Dose: 20 mg Glimepiride (Amaryl) 2 mg PO DAILY [facility] Last Admin: 09/24/17 08:42 Dose: 2 mg Glucagon (Glucagon) 1 mg IM PRN PRN PRN Reason: Hypoglycemia Guaifenesin (Robitussin Sf) 200 mg PO Q4H PRN PRN Reason: Cough Heparin Sodium (Porcine) (Heparin) 5,000 units SC BID [facility] Last Admin: 09/24/17 08:43 Dose: 5,000 units Hydralazine HCl (Apresoline) 10 mg SLOW IVP Q4H PRN PRN Reason: Systolic BP > 180 Hydroxychloroquine Sulfate (Plaquenil) 200 mg PO DAILY [facility] Last Admin: 09/24/17 08:42 Dose: 200 mg Dextrose/Water (D5w) 1,000 mls @ 0 mls/hr IV .Q0M PRN; As Directed PRN Reason: Hypoglycemia Insulin Human Lispro (Humalog) 0 units SC .MILD SLIDING SCALE PRN PRN Reason: Mild Correctional Scale Last Admin: 09/23/17 17:29 Dose: 3 unit Iron/Minerals/Multivitamins (Theragran M) 1 tab PO DAILY [facility] Last Admin: 09/24/17 08:42 Dose: 1 tab Levothyroxine Sodium (Synthroid) 50 mcg PO 0600 [facility] Last Admin: 09/24/17 05:12 Dose: 50 mcg Lisinopril (Zestril) 30 mg PO DAILY [facility] Last Admin: 09/24/17 08:42 Dose: 30 mg Loperamide HCl (Imodium) 2 mg PO PRN PRN PRN Reason: Diarrhea/Loose Stools Last Admin: 09/21/17 17:41 Dose: 2 mg Loratadine (Claritin) 10 mg PO DAILYPRN PRN PRN Reason: Sinus Symptoms Magnesium Hydroxide (Milk Of Magnesium) 30 ml PO DAILYPRN PRN PRN Reason: Constipation Megestrol Acetate (Megace) 40 mg PO BID [facility] Last Admin: 09/24/17 08:43 Dose: 40 mg Metformin HCl (Glucophage Xr) 500 mg PO QPM-WM [facility] Last Admin: 09/23/17 17:29 Dose: 500 mg Mineral Oil/White Petrolatum (Eucerin Cream) 0 gm TOP BIDPRN PRN PRN Reason: Dry Skin Ondansetron HCl (Zofran Odt) 4 mg PO Q6H PRN PRN Reason: Nausea/Vomiting Ondansetron HCl (Zofran) 4 mg IVP Q6H PRN PRN Reason: Nausea/Vomiting (Adalimumab [Humira (Pen] [Hm Med]) 0 each SC Q14D@0830 [facility] Last Admin: 09/23/17 11:48 Dose: 1 each Phenol (Chloraseptic [place] 180 Ml Bot) 0 ml PO PRN PRN PRN Reason: Sore Throat Senna (Senokot) 2 tab PO HSPRN PRN PRN Reason: Constipation Sodium Chloride ([place] Nasal [place] 0.65%) 0 ml EA NARE QIDPRN PRN PRN Reason: Nasal Congestion Spironolactone (Aldactone) 25 mg PO QAM-[facility] Last Admin: 09/24/17 08:42 Dose: 25 mg Temazepam (Restoril) 15 mg PO HSPRN PRN PRN Reason: Insomnia Tramadol HCl (Ultram) 50 mg PO Q4H PRN PRN Reason: Moderate Pain (4-6)
[2017-09-24] MEDS: HumaLOG 300 UNITS/3 ML VIAL SC PRN (12:42)
[2017-09-24] MEDS: metFORMIN XR 500 MG TAB PO SCH (17:29)
--- NOTE | 2017-09-24 18:00 | PDOC.CTH ---
Cardiology Progress Note - Subjective Doing well. Able to lay flat now. No chest pain. - Objective Vital Signs Temp Pulse Pulse Pulse Resp BP BP 09/24/17 15:21 97.5 F L 64 18 09/24/17 14:40 62 09/24/17 12:49 67 67 156/70 H 09/24/17 12:35 97.4 F L 69 18 09/24/17 08:42 153/70 H 09/24/17 07:20 98.5 F 69 18 BP BP Pulse Ox Pulse Ox Pulse Ox Pulse Ox 09/24/17 15:21 137/62 96 09/24/17 14:40 125/59 L 88 L 83 L 92 L 09/24/17 12:49 141/67 H 93 L 95 09/24/17 12:35 138/68 95 09/24/17 08:42 09/24/17 07:20 153/70 H 93 L Admit Weight 103 lb Weight 99 lb 12.8 oz 09/23/17 09/24/17 09/25/17 06:59 06:59 06:59 Intake Total 240 240 Output Total 3 Balance 237 240 - Physical Examination General/Neuro: alert & oriented x3, NAD Neck: no JVD present Lungs: CTA, unlabored respirations Heart: RRR Abdomen: NT/ND Extremities: other: (no edema) - Telemetry Telemetry Rhythm: NSR - Labs Result Diagrams: 09/24/17 05:59 09/24/17 05:59 Troponin/CKMB CK-MB (CK-2) 5.2 ng/mL (0-6.6) 09/21/17 11:13 Troponin I 0.088 ng/mL (< 0.028) H 09/21/17 17:31 - Assessment/Plan 1. New onset CM EF at 30-35% 2. CAD 3. Acute on chronic systolic heart failure, improving. PLAN: - Hold any more IV lasix. - Plan on Right and Left heart cath tomorrow. Discussed with her and her family and POA. They agree to proceed and they rescind DNR/DNI for procedure.
[2017-09-24] MEDS: Famotidine 20 MG TAB PO SCH (20:27)
[2017-09-24] MEDS: Atorvastatin Calcium 10 MG TAB PO SCH (20:27)
[2017-09-25] MEDS: Lisinopril 20 MG TAB PO SCH (05:32)
[2017-09-25] MEDS: Carvedilol 3.125 MG TAB PO SCH ×2 (05:33→16:58)
[2017-09-25] MEDS: Levothyroxine Sodium 50 MCG TAB PO SCH (05:33)
--- NOTE | 2017-09-25 11:28 | PDOC.PN ---
- Subjective Encounter Start Date: 09/25/17 Encounter Start Time: 08:50 Patient seen and examined. No new complaints. No overnight events - Objective Resuscitation Status: Resuscitation Status DNR:Do Not Resuscitate MAR Reviewed: Yes Vital Signs & Weight: Vital Signs (12 hours) Temp Pulse Resp BP BP Pulse Ox 09/25/17 11:25 97.6 F 97 16 155/67 H 96 09/25/17 08:15 97.9 F 59 L 16 96 09/25/17 08:05 97.9 F 59 L 16 151/68 H 96 09/25/17 05:32 153/70 H 09/25/17 03:50 97.6 F 58 L 16 153/70 H 94 L Weight Admit Weight 103 lb Weight 100 lb 4.8 oz I&O: 09/24/17 09/25/17 09/26/17 06:59 06:59 06:59 Intake Total 1200 1160 Output Total 1200 1000 Balance 0 160 Result Diagrams: 09/24/17 05:59 09/25/17 10:12 Additional Labs: Accuchecks 09/24/17 09/24/17 09/24/17 20:33 16:39 11:37 POC Glucose 141 H 147 H 204 H 09/24/17 05:47 POC Glucose 163 H EKG Reviewed by me: Yes Phys Exam - Physical Examination Constitutional: NAD HEENT: PERRLA, moist MMs, sclera anicteric Neck: no JVD, supple Respiratory: no wheezing, no rales, no rhonchi Cardiovascular: RRR, no significant murmur, no rub Gastrointestinal: soft, non-tender, no distention, positive bowel sounds Musculoskeletal: no edema, pulses present Neurological: non-focal, normal sensation Lymphatic: no nodes Psychiatric: normal affect Skin: no rash, normal turgor Dx/Plan (1) Acute combined systolic and diastolic heart failure Code(s): I50.41 - ACUTE COMBINED SYSTOLIC AND DIASTOLIC (CONGESTIVE) HRT FAIL Status: Acute (2) Demand ischemia Code(s): I24.8 - OTHER FORMS OF ACUTE ISCHEMIC HEART DISEASE Status: Acute (3) Tobacco abuse Code(s): Z72.0 - TOBACCO USE Status: Acute (4) CKD (chronic kidney disease) stage 3, GFR 30-59 ml/min Code(s): N18.3 - CHRONIC KIDNEY DISEASE, STAGE 3 (MODERATE) Status: Chronic (5) Diabetes type 2, controlled Code(s): E11.9 - TYPE 2 DIABETES MELLITUS WITHOUT COMPLICATIONS Status: Chronic (6) Osteoporosis Code(s): M81.0 - AGE-RELATED OSTEOPOROSIS W/O CURRENT PATHOLOGICAL FRACTURE Status: Chronic (7) Rheumatoid arthritis Code(s): M06.9 - RHEUMATOID ARTHRITIS, UNSPECIFIED Status: Chronic (8) Moderate aortic regurgitation Code(s): I35.1 - NONRHEUMATIC AORTIC (VALVE) INSUFFICIENCY Status: Acute (9) Moderate tricuspid regurgitation Code(s): I07.1 - RHEUMATIC TRICUSPID INSUFFICIENCY Status: Acute (10) Physical deconditioning Code(s): R53.81 - OTHER MALAISE Status: Acute (11) Anxiety and depression Code(s): F41.9 - ANXIETY DISORDER, UNSPECIFIED; F32.9 - MAJOR DEPRESSIVE DISORDER, SINGLE EPISODE, UNSPECIFIED Status: Chronic (12) CAD (coronary artery disease) Code(s): I25.10 - ATHSCL HEART DISEASE OF [place] CORONARY ARTERY W/O ANG PCTRS Status: Chronic (13) Hypothyroidism Code(s): E03.9 - HYPOTHYROIDISM, UNSPECIFIED Status: Chronic (14) Protein-calorie malnutrition, moderate Code(s): E44.0 - MODERATE PROTEIN-CALORIE MALNUTRITION Status: Chronic - Plan cont current plan of care, PT/OT * today plan for cardiac cath for ischemic work up * will monitor after cath today * will need life vest on discharge * adjust cardiac meds * medication reviewed as below * symptomatic treatment * may need SNU placement, currently at assisted living. Review of Systems - Review of Systems ENT: negative: Ear Pain, Ear Discharge, Nose Pain, Nose Discharge, Nose Congestion, Mouth Pain, Mouth Swelling, Throat Pain, Throat Swelling, Other Respiratory: negative: Cough, Dry, Shortness of Breath, Hemoptysis, SOB with Excertion, Pleuritic Pain, Sputum, Wheezing Cardiovascular: negative: chest pain, palpitations, orthopnea, paroxysmal nocturnal dyspnea, edema, light headedness, other Gastrointestinal: negative: Nausea, Vomiting, Abdominal Pain, Diarrhea, Constipation, Melena, Hematochezia, Other Genitourinary: negative: Dysuria, Frequency, Incontinence, Hematuria, Retention , Other Musculoskeletal: negative: Neck Pain, Shoulder Pain, Arm Pain, Back Pain, Hand Pain, Leg Pain, Foot Pain, Other Skin: negative: Rash, Lesions, Byron, Bruising, Other - Medications/Allergies Allergies/Adverse Reactions: Allergies Allergy/AdvReac Type Severity Reaction Status Date / Time No Known Allergies Allergy Unverified 09/21/17 16:57 Medications: Current Medications Acetaminophen (Tylenol) 650 mg PO Q4H PRN PRN Reason: Headache/Fever or Mild Pain Al Hydroxide/Mg Hydroxide (Maalox) 15 ml PO Q4H PRN PRN Reason: Heartburn or Indigestion Artificial Tears (Tears Naturale) 0 drop EA EYE PRN PRN PRN Reason: Dry Eyes Aspirin (Ecotrin) 81 mg PO DAILY [facility] Last Admin: 09/24/17 08:42 Dose: 81 mg Atorvastatin Calcium (Lipitor) 10 mg PO [facility] Last Admin: 09/24/17 20:27 Dose: 10 mg Carvedilol (Coreg) 3.125 mg PO BID-[facility] Last Admin: 09/25/17 05:33 Dose: 3.125 mg Cholecalciferol (Vitamin D3) 2,000 units PO DAILY [facility] Last Admin: 09/24/17 08:42 Dose: 2,000 units Cyanocobalamin (Vitamin B-12) 1,000 mcg PO DAILY [facility] Last Admin: 09/24/17 08:42 Dose: 1,000 mcg Dextrose/Water (Dextrose 50%) 25 gm SLOW IVP PRN PRN PRN Reason: Hypoglycemia Famotidine (Pepcid) 20 mg PO 2100 [facility] Last Admin: 09/24/17 20:27 Dose: 20 mg Fluoxetine HCl (Prozac) 20 mg PO DAILY [facility] Last Admin: 09/24/17 08:42 Dose: 20 mg Folic Acid (Folvite) 1 mg PO DAILY [facility] Last Admin: 09/24/17 08:42 Dose: 1 mg Furosemide (Lasix) 20 mg PO 0900,1400 [facility] Last Admin: 09/24/17 15:17 Dose: 20 mg Glimepiride (Amaryl) 2 mg PO DAILY [facility] Last Admin: 09/24/17 08:42 Dose: 2 mg Glucagon (Glucagon) 1 mg IM PRN PRN PRN Reason: Hypoglycemia Guaifenesin (Robitussin Sf) 200 mg PO Q4H PRN PRN Reason: Cough Heparin Sodium (Porcine) (Heparin) 5,000 units SC BID [facility] Last Admin: 09/24/17 20:27 Dose: 5,000 units Hydralazine HCl (Apresoline) 10 mg SLOW IVP Q4H PRN PRN Reason: Systolic BP > 180 Hydroxychloroquine Sulfate (Plaquenil) 200 mg PO DAILY [facility] Last Admin: 09/24/17 08:42 Dose: 200 mg Dextrose/Water (D5w) 1,000 mls @ 0 mls/hr IV .Q0M PRN; As Directed PRN Reason: Hypoglycemia Insulin Human Lispro (Humalog) 0 units SC .MILD SLIDING SCALE PRN PRN Reason: Mild Correctional Scale Last Admin: 09/24/17 12:42 Dose: 3 unit Iron/Minerals/Multivitamins (Theragran M) 1 tab PO DAILY [facility] Last Admin: 09/24/17 08:42 Dose: 1 tab Levothyroxine Sodium (Synthroid) 50 mcg PO 0600 [facility] Last Admin: 09/25/17 05:33 Dose: 50 mcg Lisinopril (Zestril) 30 mg PO DAILY [facility] Last Admin: 09/25/17 05:32 Dose: 30 mg Loperamide HCl (Imodium) 2 mg PO PRN PRN PRN Reason: Diarrhea/Loose Stools Last Admin: 09/21/17 17:41 Dose: 2 mg Loratadine (Claritin) 10 mg PO DAILYPRN PRN PRN Reason: Sinus Symptoms Magnesium Hydroxide (Milk Of Magnesium) 30 ml PO DAILYPRN PRN PRN Reason: Constipation Megestrol Acetate (Megace) 40 mg PO BID [facility] Last Admin: 09/24/17 20:28 Dose: 40 mg Metformin HCl (Glucophage Xr) 500 mg PO QPM-[facility] Last Admin: 09/24/17 17:29 Dose: 500 mg Mineral Oil/White Petrolatum (Eucerin Cream) 0 gm TOP BIDPRN PRN PRN Reason: Dry Skin Ondansetron HCl (Zofran Odt) 4 mg PO Q6H PRN PRN Reason: Nausea/Vomiting Ondansetron HCl (Zofran) 4 mg IVP Q6H PRN PRN Reason: Nausea/Vomiting (Adalimumab [Humira (Pen] [Hm Med]) 0 each SC Q14D@0830 [facility] Last Admin: 09/23/17 11:48 Dose: 1 each Phenol (Chloraseptic [place] 180 Ml Bot) 0 ml PO PRN PRN PRN Reason: Sore Throat Senna (Senokot) 2 tab PO HSPRN PRN PRN Reason: Constipation Sodium Chloride ([place] Nasal [place] 0.65%) 0 ml EA NARE QIDPRN PRN PRN Reason: Nasal Congestion Spironolactone (Aldactone) 25 mg PO QAM-[facility] Last Admin: 09/24/17 08:42 Dose: 25 mg Temazepam (Restoril) 15 mg PO HSPRN PRN PRN Reason: Insomnia Tramadol HCl (Ultram) 50 mg PO Q4H PRN PRN Reason: Moderate Pain (4-6)
[2017-09-25] MEDS: Aspirin 81 mg Enteric Coated Tablet PO SCH (12:24)
[2017-09-25] MEDS: Glimepiride 2 MG TAB PO SCH (12:25)
[2017-09-25] MEDS: Folic Acid 1 MG TAB PO SCH (12:25)
[2017-09-25] MEDS: FLUoxetine HCl 20 MG CAP PO SCH (12:25)
[2017-09-25] MEDS: Cyanocobalamin (Vitamin B-12) 1,000 MCG TAB PO SCH (12:25)
[2017-09-25] MEDS: Multivitamin W/ Minerals 1 TAB PO SCH (12:26)
[2017-09-25] MEDS: Hydroxychloroquine Sulfate 200 MG TAB PO SCH (12:26)
[2017-09-25] MEDS: Heparin 5,000 UNITS/ML VIAL SC SCH ×2 (12:27→20:47)
[2017-09-25] MEDS: Megestrol Acetate 40 MG TAB PO SCH ×2 (12:27→20:47)
[2017-09-25] MEDS: Furosemide 20 MG TAB PO SCH (12:28)
[2017-09-25] MEDS: Spironolactone 25 MG TAB PO SCH (12:28)
--- NOTE | 2017-09-25 14:49 | PDOC.CTH ---
Cardiology Progress Note - Subjective Had to cancel her LHC due to rising creatinine. She denies any chest pain, tightness ,pressure, SOB. - Objective Vital Signs Temp Pulse Pulse Pulse Pulse Resp BP 09/25/17 11:25 97.6 F 97 16 09/25/17 10:50 65 56 L 09/25/17 09:08 58 L 59 L 09/25/17 08:15 97.9 F 59 L 16 09/25/17 08:05 97.9 F 59 L 16 09/25/17 05:32 153/70 H 09/25/17 03:50 97.6 F 58 L 16 BP BP BP BP Pulse Ox Pulse Ox Pulse Ox 09/25/17 11:25 155/67 H 96 09/25/17 10:50 152/71 H 159/72 H 95 09/25/17 09:08 152/67 H 159/70 H 93 L 98 09/25/17 08:15 96 09/25/17 08:05 151/68 H 96 09/25/17 05:32 09/25/17 03:50 153/70 H 94 L Pulse Ox 09/25/17 11:25 09/25/17 10:50 98 09/25/17 09:08 09/25/17 08:15 09/25/17 08:05 09/25/17 05:32 09/25/17 03:50 Admit Weight 103 lb Weight 100 lb 4.8 oz 09/24/17 09/25/17 09/26/17 06:59 06:59 06:59 Intake Total 1200 1160 Output Total 1200 1000 Balance 0 160 - Physical Examination General/Neuro: alert & oriented x3, NAD Neck: no JVD present Lungs: CTA, unlabored respirations Heart: RRR Abdomen: NT/ND Extremities: other: (no edema) - Telemetry Telemetry Rhythm: NSR - Labs Result Diagrams: 09/24/17 05:59 09/25/17 10:12 Troponin/CKMB CK-MB (CK-2) 5.2 ng/mL (0-6.6) 09/21/17 11:13 Troponin I 0.088 ng/mL (< 0.028) H 09/21/17 17:31 - Assessment/Plan 1. New onset CM EF at 30-35% 2. CAD 3. Acute on chronic systolic heart failure, improving. 4. [place], likely overdiuresis. PLAN: - Hold lasix. - Will give small IV fluid bolus. - Delay cath until creatinine better. - Will hold Metformin and aldactone for now. Continue ACEI unless creat worse tomorrow.
[2017-09-25] MEDS ORDERED: Sodium Chloride 0.9% 1,000 ML IV SCH (15:00)
[2017-09-25] MEDS: Famotidine 20 MG TAB PO SCH (20:47)
[2017-09-25] MEDS: Atorvastatin Calcium 10 MG TAB PO SCH (20:47)
[2017-09-26] MEDS: Levothyroxine Sodium 50 MCG TAB PO SCH (05:58)
[2017-09-26] MEDS: Lisinopril 20 MG TAB PO SCH (08:39)
[2017-09-26] MEDS: Cyanocobalamin (Vitamin B-12) 1,000 MCG TAB PO SCH (08:41)
[2017-09-26] MEDS: Megestrol Acetate 40 MG TAB PO SCH (08:41)
[2017-09-26] MEDS: Glimepiride 2 MG TAB PO SCH (08:41)
[2017-09-26] MEDS: FLUoxetine HCl 20 MG CAP PO SCH (08:41)
[2017-09-26] MEDS: Carvedilol 3.125 MG TAB PO SCH ×2 (08:41→17:11)
[2017-09-26] MEDS: Multivitamin W/ Minerals 1 TAB PO SCH (08:41)
[2017-09-26] MEDS: Folic Acid 1 MG TAB PO SCH (08:41)
[2017-09-26] MEDS: Aspirin 81 mg Enteric Coated Tablet PO SCH (08:42)
[2017-09-26] MEDS: Hydroxychloroquine Sulfate 200 MG TAB PO SCH (08:42)
[2017-09-26] MEDS: Heparin 5,000 UNITS/ML VIAL SC SCH ×2 (08:43→21:40)
[2017-09-26 10:35] LABS: Anion Gap 18 mmol/L (10-20); BUN (Urea Nitrogen) 53 mg/dL (9.8-20.1); Calc. Creatinine Clearance 18 mL/min (70-130); Calcium 8.3 mg/dL (7.8-10.44); Carbon Dioxide 20 mmol/L (23-31); Chloride 102 mmol/L (98-107); Estimated GFR-MDRD 28; Glucose 203 mg/dL (83-110); Potassium 4.5 mmol/L (3.5-5.1); Sodium 135 mmol/L (136-145)
--- NOTE | 2017-09-26 11:54 | PDOC.PN ---
- Subjective Encounter Start Date: 09/26/17 Encounter Start Time: 11:53 Patient seen and examined, no new issues or complaints overnight, all questions answered. No family at bedside. - Objective Resuscitation Status: Resuscitation Status DNR:Do Not Resuscitate Vital Signs & Weight: Vital Signs (12 hours) Temp Pulse Resp BP BP Pulse Ox 09/26/17 08:39 153/70 H 09/26/17 08:36 97.5 F L 59 L 16 154/67 H 98 09/26/17 04:29 97.6 F 59 L 19 159/67 H 97 09/26/17 00:41 98.2 F 63 16 141/61 H 95 Weight Admit Weight 103 lb Weight 100 lb 4.8 oz I&O: 09/25/17 09/26/17 09/27/17 06:59 06:59 06:59 Intake Total 1160 746 Output Total 1000 Balance 160 746 Result Diagrams: 09/24/17 05:59 09/26/17 10:08 Additional Labs: Accuchecks 09/25/17 09/25/17 09/24/17 16:19 05:59 22:01 POC Glucose 155 H 107 171 H Phys Exam - Physical Examination Constitutional: NAD HEENT: PERRLA, moist MMs, sclera anicteric Neck: no nodes, no JVD, supple Respiratory: no wheezing, no rales, no rhonchi Cardiovascular: RRR, no significant murmur, no rub Gastrointestinal: soft, non-tender, no distention Musculoskeletal: no edema, pulses present Neurological: non-focal, normal sensation Dx/Plan (1) Acute combined systolic and diastolic heart failure Code(s): I50.41 - ACUTE COMBINED SYSTOLIC AND DIASTOLIC (CONGESTIVE) HRT FAIL Status: Acute (2) Demand ischemia Code(s): I24.8 - OTHER FORMS OF ACUTE ISCHEMIC HEART DISEASE Status: Acute (3) Physical deconditioning Code(s): R53.81 - OTHER MALAISE Status: Acute (4) Tobacco abuse Code(s): Z72.0 - TOBACCO USE Status: Acute (5) Anxiety and depression Code(s): F41.9 - ANXIETY DISORDER, UNSPECIFIED; F32.9 - MAJOR DEPRESSIVE DISORDER, SINGLE EPISODE, UNSPECIFIED Status: Chronic (6) CAD (coronary artery disease) Code(s): I25.10 - ATHSCL HEART DISEASE OF [place] CORONARY ARTERY W/O ANG PCTRS Status: Chronic (7) Diabetes type 2, controlled Code(s): E11.9 - TYPE 2 DIABETES MELLITUS WITHOUT COMPLICATIONS Status: Chronic (8) Rheumatoid arthritis Code(s): M06.9 - RHEUMATOID ARTHRITIS, UNSPECIFIED Status: Chronic - Plan * pending cardiac cath * continue all other plan of care no changes * case and plan d/w patient at length, she understands and agrees with this plan
--- NOTE | 2017-09-26 17:39 | PDOC.CTH ---
Cardiology Progress Note - Subjective Her creatinine continues to increase. She has no new complaints. - Objective Vital Signs Temp Pulse Resp BP BP Pulse Ox 09/26/17 12:34 97.6 F 59 L 18 146/67 H 98 09/26/17 08:39 153/70 H 09/26/17 08:36 97.5 F L 59 L 16 154/67 H 98 Admit Weight 103 lb Weight 100 lb 4.8 oz 09/25/17 09/26/17 09/27/17 06:59 06:59 06:59 Intake Total 1160 746 Output Total 1000 Balance 160 746 - Physical Examination General/Neuro: alert & oriented x3, NAD Neck: no JVD present Lungs: CTA, unlabored respirations Heart: RRR Abdomen: NT/ND Extremities: other: (no edema.) - Telemetry Telemetry Rhythm: NSR - Labs Result Diagrams: 09/24/17 05:59 09/26/17 10:08 Troponin/CKMB CK-MB (CK-2) 5.2 ng/mL (0-6.6) 09/21/17 11:13 Troponin I 0.088 ng/mL (< 0.028) H 09/21/17 17:31 - Assessment/Plan 1. New onset CM EF at 30-35% 2. CAD 3. Acute on chronic systolic heart failure, improving. 4. SAMPSON, likely overdiuresis. 5. Severe rheumatoid arthritis. PLAN: - Continue to hold lasix. - Delay cath until creatinine better. - Continue ACEI. 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 She will not be able to wear this. Will discuss with family.
[2017-09-26] MEDS ORDERED: Sodium Chloride 0.9% 1,000 ML IV SCH (17:45)
[2017-09-26] MEDS: Atorvastatin Calcium 10 MG TAB PO SCH (21:40)
[2017-09-26] MEDS: Famotidine 20 MG TAB PO SCH (21:40)
[2017-09-27] MEDS: Levothyroxine Sodium 50 MCG TAB PO SCH (05:34)
[2017-09-27] MEDS: Megestrol Acetate 40 MG TAB PO SCH ×3 (05:37→21:27)
[2017-09-27 06:27] LABS: Anion Gap 22 mmol/L (10-20); BUN (Urea Nitrogen) 59 mg/dL (9.8-20.1); Calc. Creatinine Clearance 17 mL/min (70-130); Calcium 8.4 mg/dL (7.8-10.44); Carbon Dioxide 13 mmol/L (23-31); Chloride 105 mmol/L (98-107); Estimated GFR-MDRD 26; Glucose 247 mg/dL (83-110); Potassium 4.9 mmol/L (3.5-5.1); Sodium 135 mmol/L (136-145)
[2017-09-27] MEDS: FLUoxetine HCl 20 MG CAP PO SCH (08:58)
[2017-09-27] MEDS: Carvedilol 3.125 MG TAB PO SCH ×2 (08:58→17:28)
[2017-09-27] MEDS: Aspirin 81 mg Enteric Coated Tablet PO SCH (08:58)
[2017-09-27] MEDS: Folic Acid 1 MG TAB PO SCH (08:58)
[2017-09-27] MEDS: Cyanocobalamin (Vitamin B-12) 1,000 MCG TAB PO SCH (08:58)
[2017-09-27] MEDS: Multivitamin W/ Minerals 1 TAB PO SCH (08:59)
[2017-09-27] MEDS: Hydroxychloroquine Sulfate 200 MG TAB PO SCH (08:59)
[2017-09-27] MEDS: Glimepiride 2 MG TAB PO SCH (08:59)
[2017-09-27] MEDS: Heparin 5,000 UNITS/ML VIAL SC SCH ×2 (09:02→21:27)
--- NOTE | 2017-09-27 10:17 | RAD ---
RADIOGRAPH CHEST 1 VIEW: Date: 09-27-17 Time: 1:41 a.m. HISTORY: 82-year-old female with dyspnea. COMPARISON: 09-21-17 FINDINGS: Cardiomegaly. Pulmonary vascular engorgement. Bilateral small bilateral effusions. Mild interstitial densities representing pulmonary interstitial edema, have improved. No pneumothorax. IMPRESSION: 1. Congestive heart failure, with cardiomegaly and bilateral small pleural effusions. 2. Slight interval improvement in the pulmonary interstitial edema. ANDREINA POS: CAT
--- NOTE | 2017-09-27 12:17 | PDOC.PN ---
- Subjective Encounter Start Date: 09/27/17 Encounter Start Time: 12:14 Patient seen and examined, states she feels cold and a bit SOB but better than earlier this morning, no other new issues. Patient had a code green this AM as her SPO2 dropped to the 70s. - Objective Resuscitation Status: Resuscitation Status DNR:Do Not Resuscitate Vital Signs & Weight: Vital Signs (12 hours) Temp Pulse Pulse Resp Resp BP BP 09/27/17 07:35 97.1 F L 59 L 18 09/27/17 07:20 97.1 F L 59 L 18 09/27/17 04:00 96.7 F L 54 L 20 146/64 H 09/27/17 01:40 09/27/17 01:32 09/27/17 01:29 67 30 H 143/65 H BP Pulse Ox Pulse Ox 09/27/17 07:35 99 09/27/17 07:20 156/70 H 99 09/27/17 04:00 100 09/27/17 01:40 143/65 H 100 09/27/17 01:32 143/65 H 09/27/17 01:29 151/75 H 88 L 88 L Weight Admit Weight 103 lb Weight 100 lb 4.8 oz I&O: 09/26/17 09/27/17 09/28/17 06:59 06:59 06:59 Intake Total 746 1293 Balance 746 1293 Result Diagrams: 09/24/17 05:59 09/27/17 01:35 Additional Labs: Accuchecks 09/27/17 01:28 POC Glucose 225 H Phys Exam - Physical Examination Constitutional: NAD fraile HEENT: PERRLA, moist MMs, sclera anicteric Neck: no nodes, no JVD, supple no respiratory distress, inspiratory crackles noted Cardiovascular: RRR, no significant murmur, no rub Gastrointestinal: soft, non-tender, no distention Musculoskeletal: pulses present, edema present (trace) Neurological: non-focal, normal sensation Dx/Plan (1) Acute combined systolic and diastolic heart failure Code(s): I50.41 - ACUTE COMBINED SYSTOLIC AND DIASTOLIC (CONGESTIVE) HRT FAIL Status: Acute (2) Demand ischemia Code(s): I24.8 - OTHER FORMS OF ACUTE ISCHEMIC HEART DISEASE Status: Acute (3) Physical deconditioning Code(s): R53.81 - OTHER MALAISE Status: Acute (4) Tobacco abuse Code(s): Z72.0 - TOBACCO USE Status: Acute (5) Anxiety and depression Code(s): F41.9 - ANXIETY DISORDER, UNSPECIFIED; F32.9 - MAJOR DEPRESSIVE DISORDER, SINGLE EPISODE, UNSPECIFIED Status: Chronic (6) CAD (coronary artery disease) Code(s): I25.10 - ATHSCL HEART DISEASE OF [place] CORONARY ARTERY W/O ANG PCTRS Status: Chronic (7) Diabetes type 2, controlled Code(s): E11.9 - TYPE 2 DIABETES MELLITUS WITHOUT COMPLICATIONS Status: Chronic (8) Rheumatoid arthritis Code(s): M06.9 - RHEUMATOID ARTHRITIS, UNSPECIFIED Status: Chronic - Plan * At this point in time, patient has SPO2 back to normal * will consult renal for assistance * will hold IVFs for now given SOB earlier today, will also give lasix 40mg IV x 1 dose as BNP very high and patient has small pleural effusions on CXR * DC HARJIT * will also consult palliative care to help assist with decision making * Call placed to patient's decision maker Trey Rajput at [phone] three times with no response * will continue current plan of care for now, cardio also following * no family at bedside.
[2017-09-27 14:30] VITALS: BMI 16.7
--- NOTE | 2017-09-27 17:40 | PDOC.CTH ---
Cardiology Progress Note - Subjective She became more SOB overnight. Has been placed on NC now to keep sats. Creatinine continues to increase. BNP back up. - Objective Vital Signs Temp Pulse Resp BP BP Pulse Ox 09/27/17 17:00 97.8 F 61 18 146/67 H 100 09/27/17 12:41 97.5 F L 64 18 135/61 99 09/27/17 07:35 97.1 F L 59 L 18 99 09/27/17 07:20 97.1 F L 59 L 18 156/70 H 99 Admit Weight 103 lb Weight 100 lb 4.8 oz 09/26/17 09/27/17 09/28/17 06:59 06:59 06:59 Intake Total 746 1293 Balance 746 1293 - Physical Examination General/Neuro: NAD Neck: no JVD present Lungs: other: (mild crackles at bases.) Heart: RRR Abdomen: NT/ND Extremities: other: (no edema) - Telemetry Telemetry Rhythm: NSR - Labs Result Diagrams: 09/24/17 05:59 09/27/17 01:35 Troponin/CKMB CK-MB (CK-2) 5.2 ng/mL (0-6.6) 09/21/17 11:13 Troponin I 0.088 ng/mL (< 0.028) H 09/21/17 17:31 - Assessment/Plan 1. New onset CM EF at 30-35% 2. CAD 3. Acute on chronic systolic heart failure, recurrence. 4. SAMPSON 2a cardiorenal syndrome. 5. Severe rheumatoid arthritis. 6. Dementia. PLAN: - IV lasix. - I think her level of dementia is worse than what I could rios on day 1. Will plan on conservative therapy as she may be too frail to undergo any invasive procedures. She most likely has severe as she decompensated fairly quickly. - Continue ACEI. - I think palliative care may be needed in the future but not at this time. - Plan to diurese and once more euvolemic try to find a PO dose of lasix to keep her dry. If she confiners to have several frequent admissions for CHF she will need palliative care at that time.
[2017-09-27] MEDS ORDERED: Furosemide 40 MG/4 ML VIAL SLOW IVP SCH (18:00)
[2017-09-27] MEDS: Atorvastatin Calcium 10 MG TAB PO SCH (21:26)
[2017-09-27] MEDS: hydrALAZINE 25 MG TAB PO SCH (21:26)
[2017-09-27] MEDS: Famotidine 20 MG TAB PO SCH (21:27)
[2017-09-28 05:52] LABS: Anion Gap 14 mmol/L (10-20); BUN (Urea Nitrogen) 57 mg/dL (9.8-20.1); Calc. Creatinine Clearance 19 mL/min (70-130); Calcium 8.2 mg/dL (7.8-10.44); Carbon Dioxide 22 mmol/L (23-31); Chloride 104 mmol/L (98-107); Estimated GFR-MDRD 28; Glucose 288 mg/dL (83-110); Potassium 4.2 mmol/L (3.5-5.1); Sodium 136 mmol/L (136-145)
[2017-09-28] MEDS: Levothyroxine Sodium 50 MCG TAB PO SCH (05:57)
[2017-09-28] MEDS ORDERED: Furosemide 40 MG/4 ML VIAL SLOW IVP SCH (06:00)
[2017-09-28] MEDS: Cyanocobalamin (Vitamin B-12) 1,000 MCG TAB PO SCH (10:16)
[2017-09-28] MEDS: Folic Acid 1 MG TAB PO SCH (10:17)
[2017-09-28] MEDS: Glimepiride 2 MG TAB PO SCH (10:18)
[2017-09-28] MEDS: Hydroxychloroquine Sulfate 200 MG TAB PO SCH (10:18)
[2017-09-28] MEDS: Multivitamin W/ Minerals 1 TAB PO SCH (10:18)
[2017-09-28] MEDS: hydrALAZINE 25 MG TAB PO SCH ×2 (10:19→22:02)
[2017-09-28] MEDS: Megestrol Acetate 40 MG TAB PO SCH ×2 (10:19→22:10)
[2017-09-28] MEDS: FLUoxetine HCl 20 MG CAP PO SCH (10:19)
[2017-09-28] MEDS: Aspirin 81 mg Enteric Coated Tablet PO SCH (10:19)
[2017-09-28] MEDS: Carvedilol 3.125 MG TAB PO SCH ×2 (10:23→18:52)
--- NOTE | 2017-09-28 11:26 | PRG ---
DATE OF SERVICE: 09/28/2017 SUBJECTIVE: The patient seen and examined, noted with the following vital signs. PHYSICAL EXAMINATION: VITAL SIGNS: Afebrile, temperature 96.9, pulse 58, respiratory rate 20, O2 sat 100% on 2 liters, blo od pressure 124/59. HEENT EXAMINATION: Unremarkable. CARDIOVASCULAR SYSTEM: First and second heart sounds were heard. RESPIRATORY SYSTEM: Clear to auscultation. DIGESTIVE SYSTEM: Revealed a benign abdomen with positive bowel sounds. EXTREMITIES: No peripheral edema. SKIN EXAMINATION: No new gross rash. LYMPHATICS: No peripheral lymphadenopathy. LABORATORY INVESTIGATION: Showed a creatinine of 1.74, BUN of 57. IMPRESSION: 1. Acute on chronic kidney disease. 2. Congestive heart failure. PLAN: 1. We will continue with the current treatment using hydralazine as opposed to using angiotensin con verting enzyme inhibitor. 2. Continue to monitor the renal function. 3. No diuretics at this point. 4. Further management to be dependent on the clinical course.
--- NOTE | 2017-09-28 12:12 | PDOC.PN ---
- Subjective Encounter Start Date: 09/28/17 Encounter Start Time: 12:07 Patient seen and examined, states she feels well, no new issues, SOB resolved. - Objective Resuscitation Status: Resuscitation Status DNR:Do Not Resuscitate Vital Signs & Weight: Vital Signs (12 hours) Temp Pulse Resp BP BP Pulse Ox 09/28/17 11:56 100 127/60 09/28/17 08:00 96.9 F L 58 L 20 124/59 L 100 09/28/17 04:00 97.7 F 61 18 118/58 L 100 Weight Admit Weight 103 lb Weight 100 lb 1 oz I&O: 09/27/17 09/28/17 09/29/17 06:59 06:59 06:59 Intake Total 1293 480 Balance 1293 480 Result Diagrams: 09/24/17 05:59 09/28/17 04:41 Phys Exam - Physical Examination Constitutional: NAD HEENT: PERRLA, moist MMs, sclera anicteric Neck: no nodes, no JVD, supple Respiratory: no wheezing, no rales, no rhonchi Cardiovascular: RRR 2/6 DOTTIE Gastrointestinal: soft, non-tender, no distention Musculoskeletal: no edema, pulses present Neurological: non-focal, normal sensation Dx/Plan (1) Acute combined systolic and diastolic heart failure Code(s): I50.41 - ACUTE COMBINED SYSTOLIC AND DIASTOLIC (CONGESTIVE) HRT FAIL Status: Acute (2) Demand ischemia Code(s): I24.8 - OTHER FORMS OF ACUTE ISCHEMIC HEART DISEASE Status: Acute (3) Physical deconditioning Code(s): R53.81 - OTHER MALAISE Status: Acute (4) Tobacco abuse Code(s): Z72.0 - TOBACCO USE Status: Acute (5) Anxiety and depression Code(s): F41.9 - ANXIETY DISORDER, UNSPECIFIED; F32.9 - MAJOR DEPRESSIVE DISORDER, SINGLE EPISODE, UNSPECIFIED Status: Chronic (6) CAD (coronary artery disease) Code(s): I25.10 - ATHSCL HEART DISEASE OF [place] CORONARY ARTERY W/O ANG PCTRS Status: Chronic (7) Diabetes type 2, controlled Code(s): E11.9 - TYPE 2 DIABETES MELLITUS WITHOUT COMPLICATIONS Status: Chronic (8) Rheumatoid arthritis Code(s): M06.9 - RHEUMATOID ARTHRITIS, UNSPECIFIED Status: Chronic - Plan * At this point in time will switch lasix to 60mg po BID, patient states she feels well and is not SOB, appears euvolemic as well * Will monitor for 24 hours on po diuretics for now, if patient tolerating will continue with 60. 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
[2017-09-28] MEDS: Heparin 5,000 UNITS/ML VIAL SC SCH ×2 (12:21→22:00)
--- NOTE | 2017-09-28 12:35 | CON ---
DATE OF CONSULTATION: 09/27/2017 CONSULTING PHYSICIAN: Tommy Ferrera M.D. REQUESTING PHYSICIAN: Dr. Stanford/Dr. Estrada. REASON FOR CONSULTATION: Acute kidney injury. IMPRESSION: 1. Acute kidney injury. This is likely due to diuresis in the presence of angiotensin converting en zyme inhibitor, though one cannot completely rule out a component of cardiorenal syndrome. 2. Congestive heart failure. PLAN: 1. We will recommend holding angiotensin converting enzyme inhibitor and temporarily hold diuretics for now. 2. If the patient is to undergo cardiac catheterization, we will recommend the lowest possible amoun t of contrast. 3. Further management to be dependent on the clinical course. 4. We will start this patient on sodium bicarbonate supplementation and monitor the potassium level closely. HISTORY OF PRESENT ILLNESS: History is that of an 82-year-old female patient who presented with shor tness of breath, got diagnosed with new onset congestive heart failure. The patient does have histor y of coronary artery disease, status post stenting in the past in addition to type 2 diabetes. As a result of this, the patient was admitted with clear-cut evidence of pulmonary congestion and started on diuretics. Loop diuretic continued while patient is on angiotensin converting enzyme inhibitor. Over the course of the hospitalization, patient's creatinine has gone up to 1.89. The patient also n oted to be metabolically acidotic with anion gap. all these findings, decision has been taken to involve Renal in the management of this case. PAST MEDICAL HISTORY: Significant for coronary artery disease, status post stent; rheumatoid arthrit is with some limb deformities; hypertension; type 2 diabetes; chronic diarrhea. ALLERGIES: No known drug allergies. FAMILY HISTORY: Not significantly related to the consulting notes. SOCIAL HISTORY: The patient smokes. No illicit drug use. REVIEW OF SYSTEMS: As documented in the body of the history. All the other systems were reviewed an d found not to be significantly related to presenting illness. PHYSICAL EXAMINATION: GENERAL: The patient was found not to be in any obvious distress, somewhat not happy due to the fact that she has not been giving coffee to drink. Noted with the following vital signs. VITAL SIGNS: Afebrile with temperature 97.1, pulse 59, respiratory rate of 18, O2 sat of 99% with bl ood pressure 156/70. HEENT: Unremarkable. Slightly dry oral mucosa. NECK: Supple. No conjunctival injection or icterus. CARDIOVASCULAR SYSTEM: First and second heart sounds were heard. RESPIRATORY SYSTEM: Clear to auscultation. DIGESTIVE SYSTEM: Reviewed a benign abdomen. EXTREMITIES: No peripheral edema. SKIN: No new gross rash. SUMMARY: An 82-year-old female patient who presented here with shortness of breath, diagnosed with p ulmonary congestion/new onset congestive heart failure. Over the course of hospitalization, has been experiencing steadily rising creatinine. Thank you for this consultation. We will follow with you.
[2017-09-28] MEDS: Furosemide 40 MG TAB PO SCH (14:30)
--- NOTE | 2017-09-28 17:52 | PDOC.CTH ---
Cardiology Progress Note - Subjective Breathing better with diuresis. - Objective Vital Signs Temp Pulse Resp BP BP Pulse Ox 09/28/17 17:17 57 L 132/64 100 09/28/17 14:10 98 09/28/17 11:56 100 127/60 09/28/17 08:00 96.9 F L 58 L 20 124/59 L 100 Admit Weight 103 lb Weight 100 lb 1 oz 09/27/17 09/28/17 09/29/17 06:59 06:59 06:59 Intake Total 1293 480 Balance 1293 480 - Physical Examination General/Neuro: NAD Neck: no JVD present Lungs: CTA, unlabored respirations Heart: RRR Abdomen: NT/ND Extremities: other: (no edema.) - Telemetry Telemetry Rhythm: NSR - Labs Result Diagrams: 09/24/17 05:59 09/28/17 04:41 Troponin/CKMB CK-MB (CK-2) 5.2 ng/mL (0-6.6) 09/21/17 11:13 Troponin I 0.088 ng/mL (< 0.028) H 09/21/17 17:31 - Assessment/Plan 1. New onset CM EF at 30-35% 2. CAD 3. Acute on chronic systolic heart failure, recurrence. 4. SAMPSON 2a cardiorenal syndrome. Improving now with diuresis. 5. Severe rheumatoid arthritis. 6. Dementia. 7. , mild on echo, may be worse due to LV dysfunction. PLAN: - Continue IV lasix. - Daughter in the room today updated. - Continue medical management of possible CAD and aortic stenosis. - Will have PT evaluate tomorrow.
[2017-09-28] MEDS: Famotidine 20 MG TAB PO SCH (22:02)
[2017-09-28] MEDS: Atorvastatin Calcium 10 MG TAB PO SCH (22:02)
[2017-09-29 05:32] LABS: Anion Gap 10 mmol/L (10-20); BUN (Urea Nitrogen) 42 mg/dL (9.8-20.1); Calc. Creatinine Clearance 25 mL/min (70-130); Calcium 8.7 mg/dL (7.8-10.44); Carbon Dioxide 28 mmol/L (23-31); Chloride 102 mmol/L (98-107); Estimated GFR-MDRD 40; Glucose 81 mg/dL (83-110); Potassium 3.1 mmol/L (3.5-5.1); Sodium 137 mmol/L (136-145)
[2017-09-29] MEDS: Levothyroxine Sodium 50 MCG TAB PO SCH (06:22)
--- NOTE | 2017-09-29 09:09 | PRG ---
DATE OF SERVICE: 09/29/2017 SUBJECTIVE: The patient is seen and examined, seems to be doing much better. PHYSICAL EXAMINATION: VITAL SIGNS: Afebrile with temperature 98.1, pulse 74, respiratory rate 20, O2 saturation 94% with b lood pressure 135/60. HEENT: Unremarkable with moist oral mucosa. No conjunctival injection or icterus. NECK: Supple. CARDIOVASCULAR: First and second heart sounds were heard. RESPIRATORY: Clear to auscultation. DIGESTIVE: Revealed a benign abdomen with positive bowel sounds. EXTREMITIES: No peripheral edema. SKIN: No new gross rash. LYMPHATICS: No peripheral lymphadenopathy. LABORATORY INVESTIGATIONS: Showed a creatinine down to 1.28, BUN of 42, potassium 3.1. IMPRESSION: 1. Acute on chronic kidney disease, much improved. 2. Hypokalemia. PLAN: 1. Replete the potassium. 2. Continue renal supportive measures. 3. Further management to be dependent on the clinical course.
[2017-09-29] MEDS: Hydroxychloroquine Sulfate 200 MG TAB PO SCH (10:18)
[2017-09-29] MEDS: hydrALAZINE 25 MG TAB PO SCH ×2 (10:19→22:11)
[2017-09-29] MEDS: Aspirin 81 mg Enteric Coated Tablet PO SCH (10:19)
[2017-09-29] MEDS: Cyanocobalamin (Vitamin B-12) 1,000 MCG TAB PO SCH (10:19)
[2017-09-29] MEDS: Glimepiride 2 MG TAB PO SCH (10:19)
[2017-09-29] MEDS: Multivitamin W/ Minerals 1 TAB PO SCH (10:21)
[2017-09-29] MEDS: Heparin 5,000 UNITS/ML VIAL SC SCH ×2 (10:21→22:11)
[2017-09-29] MEDS: Furosemide 40 MG TAB PO SCH ×2 (10:21→15:26)
[2017-09-29] MEDS: FLUoxetine HCl 20 MG CAP PO SCH (10:21)
[2017-09-29] MEDS: Folic Acid 1 MG TAB PO SCH (10:21)
[2017-09-29] MEDS: Carvedilol 3.125 MG TAB PO SCH ×2 (10:21→16:56)
[2017-09-29] MEDS: Potassium Bicarbonate/Cit Ac 25 MEQ TAB PO SCH ×2 (10:22→20:18)
[2017-09-29] MEDS: Megestrol Acetate 40 MG TAB PO SCH ×2 (10:47→22:17)
--- NOTE | 2017-09-29 11:43 | PDOC.PN ---
- Subjective Encounter Start Date: 09/29/17 Encounter Start Time: 11:40 Patient seen and examined, no new issues or complaints, family at bedside, all questions answered. - Objective Resuscitation Status: Resuscitation Status DNR:Do Not Resuscitate Vital Signs & Weight: Vital Signs (12 hours) Temp Pulse Pulse Pulse Resp BP BP 09/29/17 10:19 57 L 09/29/17 09:25 61 61 136/64 144/65 H 09/29/17 08:00 98.2 F 57 L 20 09/29/17 04:00 98.1 F 74 20 BP Pulse Ox Pulse Ox Pulse Ox 09/29/17 10:19 09/29/17 09:25 96 98 09/29/17 08:00 136/64 94 L 09/29/17 04:00 135/60 94 L Weight Admit Weight 103 lb Weight 99 lb 6 oz I&O: 09/28/17 09/29/17 09/30/17 06:59 06:59 06:59 Intake Total 480 200 Balance 480 200 Result Diagrams: 09/24/17 05:59 09/29/17 04:39 Phys Exam - Physical Examination Constitutional: NAD fraile, thin HEENT: PERRLA, moist MMs, sclera anicteric Neck: no nodes, no JVD, supple inspiratory crackles noteed Cardiovascular: RRR 2/6 DOTTIE noted Gastrointestinal: soft, non-tender, no distention Musculoskeletal: no edema, pulses present Dx/Plan (1) Acute combined systolic and diastolic heart failure Code(s): I50.41 - ACUTE COMBINED SYSTOLIC AND DIASTOLIC (CONGESTIVE) HRT FAIL Status: Acute (2) Demand ischemia Code(s): I24.8 - OTHER FORMS OF ACUTE ISCHEMIC HEART DISEASE Status: Acute (3) Physical deconditioning Code(s): R53.81 - OTHER [place]AISE Status: Acute (4) Tobacco abuse Code(s): Z72.0 - TOBACCO USE Status: Acute (5) Anxiety and depression Code(s): F41.9 - ANXIETY DISORDER, UNSPECIFIED; F32.9 - MAJOR DEPRESSIVE DISORDER, SINGLE EPISODE, UNSPECIFIED Status: Chronic (6) CAD (coronary artery disease) Code(s): I25.10 - ATHSCL HEART DISEASE OF [place] CORONARY ARTERY W/O ANG PCTRS Status: Chronic (7) Diabetes type 2, controlled Code(s): E11.9 - TYPE 2 DIABETES MELLITUS WITHOUT COMPLICATIONS Status: Chronic (8) Rheumatoid arthritis Code(s): M06.9 - RHEUMATOID ARTHRITIS, UNSPECIFIED Status: Chronic - Plan * continue with current plan of care * Cr down to 1.4, given her significantly low muscle mass her eGFR is likely below 40, no uremic symptomatology noted * continue with po lasix for now, patient appears euvolemic and in no respiratory distress, will need to be adjusted depending on volume status * plan d/w patient's son at length via phone and at this point in time post PT evaluation the patient would benefit from SNF as she will not be able to tolerate 3hrs of PT on a daily basis in rehab, son states he would prefer SNF in that case and will talk to case management today about making arrangements * At this point in time, continue current plan of care, likely arrangements will be by monday, if set up today will DC patient today otherwise will prepare for dsicharge on monday * case and plan d/w patient and family, including son (via phone), at length, they understand and agree with this plan
--- NOTE | 2017-09-29 12:35 | PDOC.CTH ---
Cardiology Progress Note - Subjective She is doing beter. she is having a good today much more awake. Breathing improving. Now on PO lasix at 60 mg BID and still diuresing. She had sudden onset of left leg pain at the calf, she denies injuries to it, no swelling. - Objective Vital Signs Temp Pulse Pulse Pulse Resp BP BP 09/29/17 10:19 57 L 09/29/17 09:25 61 61 136/64 144/65 H 09/29/17 08:00 98.2 F 57 L 20 09/29/17 04:00 98.1 F 74 20 BP Pulse Ox Pulse Ox Pulse Ox 09/29/17 10:19 09/29/17 09:25 96 98 09/29/17 08:00 136/64 94 L 09/29/17 04:00 135/60 94 L Admit Weight 103 lb Weight 99 lb 6 oz 09/28/17 09/29/17 09/30/17 06:59 06:59 06:59 Intake Total 480 200 Balance 480 200 - Physical Examination General/Neuro: NAD Neck: no JVD present Lungs: CTA, unlabored respirations Heart: RRR Abdomen: NT/ND Extremities: other: (no edema.) - Telemetry Telemetry Rhythm: NSR - Labs Result Diagrams: 09/24/17 05:59 09/29/17 04:39 Troponin/CKMB CK-MB (CK-2) 5.2 ng/mL (0-6.6) 09/21/17 11:13 Troponin I 0.088 ng/mL (< 0.028) H 09/21/17 17:31 - Assessment/Plan 1. New onset CM EF at 30-35% 2. CAD 3. Acute on chronic systolic heart failure, recurrence. 4. SAMPSON 2a cardiorenal syndrome. Improving now with diuresis. 5. Severe rheumatoid arthritis. 6. Dementia. 7. , mild on echo 8. Leg pain PLAN: - PO laxis at current dose. - Will do doppler US if the left leg to make sure there is no DVT as she owuld be high risk with her LV dysfunction and debility. - Continue conservative management of possible CAD and aortic stenosis. - Rehab screen..
--- NOTE | 2017-09-29 15:48 | ULT ---
ULTRASOUND WITH DOPPLER DUPLEX VENOUS LOWER EXTREMITY LEFT: HISTORY: An 82-year-old female with left lower extremity pain for 1 week. TECHNIQUE: Color flow Doppler, spectral waveform analysis of pulsed Doppler, and sweeney-scale imaging with marce patrice and augmentation, were used to evaluate the left common femoral, femoral, popliteal, posterior t ibial, and superficial femoral, veins; and the proximal portions of the profunda femoral and greater saphenous, veins. FINDINGS: There is normal compressibility, demonstration of blood flow by color Doppler and pulsed Doppler, and response to augmentation, in all interrogated veins. Calcified atherosclerotic plaque is visualized in the left superficial femoral artery, profunda femoral artery, and popliteal artery. Unable to pe rform augmentation in the calf due to pain. IMPRESSION: 1. No deep vein thrombosis in the left lower extremity. 2. Evidence for atherosclerosis in the arteries of the left lower extremity. reji[] POS: [facility]
[2017-09-29] MEDS: Atorvastatin Calcium 10 MG TAB PO SCH (22:11)
[2017-09-29] MEDS: Famotidine 20 MG TAB PO SCH (22:11)
[2017-09-30] MEDS: Levothyroxine Sodium 50 MCG TAB PO SCH (05:52)
[2017-09-30 05:59] LABS: Anion Gap 14 mmol/L (10-20); BUN (Urea Nitrogen) 29 mg/dL (9.8-20.1); Calc. Creatinine Clearance 30 mL/min (70-130); Carbon Dioxide 26 mmol/L (23-31); Chloride 99 mmol/L (98-107); Estimated GFR-MDRD 50; Sodium 135 mmol/L (136-145)
[2017-09-30 06:06] LABS: Glucose 43 mg/dL (83-110)
[2017-09-30] MEDS ORDERED: Sodium Chloride 0.9% 10 ML ONE (09:17)
[2017-09-30] MEDS: Megestrol Acetate 40 MG TAB PO SCH (10:04)
[2017-09-30] MEDS: Hydroxychloroquine Sulfate 200 MG TAB PO SCH (10:05)
[2017-09-30] MEDS: Cyanocobalamin (Vitamin B-12) 1,000 MCG TAB PO SCH (10:05)
[2017-09-30] MEDS: Aspirin 81 mg Enteric Coated Tablet PO SCH (10:06)
[2017-09-30] MEDS: Multivitamin W/ Minerals 1 TAB PO SCH (10:06)
[2017-09-30] MEDS: hydrALAZINE 25 MG TAB PO SCH (10:06)
[2017-09-30] MEDS: Carvedilol 3.125 MG TAB PO SCH (10:06)
[2017-09-30] MEDS: Glimepiride 2 MG TAB PO SCH (10:07)
[2017-09-30] MEDS: Furosemide 40 MG TAB PO SCH ×2 (10:07→14:45)
[2017-09-30] MEDS: Folic Acid 1 MG TAB PO SCH (10:08)
[2017-09-30] MEDS: FLUoxetine HCl 20 MG CAP PO SCH (10:08)
[2017-09-30] MEDS: Heparin 5,000 UNITS/ML VIAL SC SCH (10:08)
--- NOTE | 2017-09-30 13:44 | PDOC.EVN ---
Event Note - Event Note Event Note: DC SUMMARY #[id number]
[2017-09-30 14:01] VITALS: BP 133/75; TEMP 98.7
--- NOTE | 2017-09-30 14:08 | DIS ---
DATE OF ADMISSION: 09/21/2017 DATE OF DISCHARGE: 09/30/2017 ADMITTING DIAGNOSES: Shortness of breath and fatigue, history of rheumatoid arthritis, history of di abetes mellitus type 2, history of osteoarthritis, history of chronic diarrhea, history of hypertensi on, history of coronary artery disease, history of chronic kidney disease stage 3. DISCHARGE DIAGNOSES: Shortness of breath and fatigue, resolved; rheumatoid arthritis, stable; diabet es mellitus type 2, stable; osteoarthritis, stable; hypertension, stable; chronic diarrhea, resolved; coronary artery disease, stable; acute kidney injury on chronic kidney disease stage 3. HOSPITAL COURSE: The patient was an 82-year-old female who was admitted to the Internal Medicine [facility] for shortness of breath and difficulty breathing. The patient was also seen by Cardiology and Neph rology team. Had an echocardiogram performed, which showed severe significant aortic stenosis. The patient at this point in time was in the plans of being worked up for valve replacement; however, the patient suffered acute kidney injury with creatinine levels rising significantly due to cardiorenal syndrome after volume removal via diuretics, the patient's creatinine appear to come back down to [place]. At this point in time, it was decided that the patient will follow up with p.o. diuretics at a retirement facility for a little while and see if there is any improvement in her creatinine a nd renal function with plans for potential cardiac catheterization at a later date. Careful discussi on was had between Nephrology team and Internal Medicine Cardiology team as well as the patient's son who is the medical power of suture polisher. The patient's family is also included in discussion. Medical power of suture polisher understood and agreed with this plan. DISPOSITION: To retirement facility. FOLLOWUP: Follow up with PCP, Cardiology within 5-7 days as well as Nephrology within 5-7 days. MEDICATIONS: See AUG. DIET: Renal. PROGNOSIS: Guarded. CONDITION: Stable. ACTIVITY: As tolerated with assistance. Case and plan discussed with the patient and medical power of suture polisher at length. They understand an d agree with this plan.
--- NOTE | 2017-10-26 15:05 | EKG ---
Test Reason : SOB Blood Pressure : / mmHG Vent. Rate : 078 BPM Atrial Rate : 078 BPM P-R Int : 140 ms QRS Dur : 090 ms QT Int : 432 ms P-R-T Axes : 068 -41 058 degrees QTc Int : 492 ms Normal sinus rhythm Left axis deviation Nonspecific ST and T wave abnormality Prolonged QT Abnormal ECG Confirmed by CHERYL SHIRLEY ([id number]), manager editorial GARCIA PRYOR ([id number] on 10/26/2017 3:04:06 PM Referred By: Confirmed By:CHERYL SHIRLEY
== END 2017-09-30 16:31 | DRG 291 ==
LOC: ERS 10:45 → 2NO 13:18
PROVIDERS: ADMIT Internal Medicine; ATTEND Internal Medicine
DX: I13.0 Hypertensive heart and chronic kidney disease with heart failure and stage 1 through stage 4 chronic kidney disease, or unspecified chronic kidney disease (principal); I50.43 Acute on chronic combined systolic (congestive) and diastolic (congestive) heart failure; N17.9 Acute kidney failure, unspecified; E44.0 Moderate protein-calorie malnutrition; E87.2 Acidosis; I24.8 Other forms of acute ischemic heart disease; Z68.1 Body mass index [BMI] 19.9 or less, adult; I35.2 Nonrheumatic aortic (valve) stenosis with insufficiency; E11.22 Type 2 diabetes mellitus with diabetic chronic kidney disease; Z53.09 Procedure and treatment not carried out because of other contraindication; M06.9 Rheumatoid arthritis, unspecified; N18.3 Chronic kidney disease, stage 3 (moderate); I25.10 Atherosclerotic heart disease of native coronary artery without angina pectoris; K52.9 Noninfective gastroenteritis and colitis, unspecified; Z95.5 Presence of coronary angioplasty implant and graft; F17.210 Nicotine dependence, cigarettes, uncomplicated; M79.662 Pain in left lower leg; F03.90 Unspecified dementia, unspecified severity, without behavioral disturbance, psychotic disturbance, mood disturbance, and anxiety; M21.942 Unspecified acquired deformity of hand, left hand; M21.941 Unspecified acquired deformity of hand, right hand; F41.8 Other specified anxiety disorders; M19.91 Primary osteoarthritis, unspecified site; E03.9 Hypothyroidism, unspecified; M81.0 Age-related osteoporosis without current pathological fracture
CPT/HCPCS: 36415; 36416; 71045; 80048; 80053; 80061; 82553; 82565; 83735; 83880; 84443; 84484; 85025; 93005; 93306; 93798; 96374; A4216; G8978-GP-CJ; G8978-GP-CL; G8979-GP-CI; G8979-GP-CJ; G8987-GO-CJ; G8988-GO-CI; J1644; J1940; S0179

== ENCOUNTER 2017-10-01 10:51 | Emergency (ER) | payer MEDICARE ==
[2017-10-01] MEDS ORDERED: Ondansetron HCl/PF 4 MG/2 ML Vial ONE (12:06)
[2017-10-01] MEDS ORDERED: Morphine 4 MG/ML VIAL ONE (12:06)
--- NOTE | 2017-10-01 12:44 | CT ---
CT BRAIN WITHOUT CONTRAST: HISTORY: Injury. Fall. FINDINGS: No acute territorial infarct or hemorrhage. No midline shift or mass effect. Old lacunar infarcts. Mild atrophy. Moderate microangiopathic changes. There is a superficial right frontal soft tissue contusion and laceration. Calvarium is intact. IMPRESSION: Right frontal superficial soft tissue contusion and laceration. No acute intracranial abnormality. POS: [facility]
[2017-10-01] MEDS ORDERED: Lidocaine 1% w/Epinephrine 1:100K 20 ML VIAL ONE (12:58)
[2017-10-01] MEDS ORDERED: Bacitracin Zinc 1 Packet ONE (13:47)
== END 2017-10-01 14:35 | disposition home or self-care (01) ==
LOC: ERS 10:51
DX: S01.81XA Laceration without foreign body of other part of head, initial encounter (principal); M19.90 Unspecified osteoarthritis, unspecified site; I10 Essential (primary) hypertension; E78.5 Hyperlipidemia, unspecified; W01.10XA Fall on same level from slipping, tripping and stumbling with subsequent striking against unspecified object, initial encounter
CPT/HCPCS: 12013; 70450; 93005; J2001; J2270; J2405

== ENCOUNTER 2017-10-09 22:57 | Emergency (ER) | payer MEDICARE ==
[2017-10-09 23:43] LABS: Bilirubin Negative (Negative); Blood, Urine Negative (Negative); Clarity CLEAR (Clear); Glucose, Urine (Dipstick) 100 mg/dL (Negative); Leukocyte Negative (Negative); Nitrite Negative (Negative); Protein, Urine (Dipstick) Negative (Neg-Trace); Urobilinogen 0.2 mg/dL (0.2-1.0); pH, Urine 7.5 (5.0-9.0)
[2017-10-10] LABS: Anion Gap 13 mmol/L (10-20); BUN (Urea Nitrogen) 36 mg/dL (9.8-20.1); Calc. Creatinine Clearance 0 mL/min (70-130); Calcium 9.4 mg/dL (7.8-10.44); Carbon Dioxide 29 mmol/L (23-31); Chloride 100 mmol/L (98-107); Estimated GFR-MDRD 42; Glucose 189 mg/dL (83-110); Potassium 3.8 mmol/L (3.5-5.1); Sodium 138 mmol/L (136-145)
== END 2017-10-10 01:20 ==
LOC: ERS 22:57
DX: E11.649 Type 2 diabetes mellitus with hypoglycemia without coma (principal); I10 Essential (primary) hypertension; M19.90 Unspecified osteoarthritis, unspecified site; E78.5 Hyperlipidemia, unspecified
CPT/HCPCS: 36415; 36416; 51701; 81003; A4353

== ENCOUNTER 2017-10-13 22:07 | Emergency (ER) | payer MEDICARE ==
--- NOTE | 2017-10-13 23:12 | CT ---
CT OF THE BRAIN WITHOUT CONTRAST: 10/13/17 COMPARISON: 10/01/17. HISTORY: Fall from standing with head laceration and trauma. TECHNIQUE: Multiple contiguous axial images were obtained in a CT of the brain without contrast. FINDINGS: There are scattered hypodensities in the subcortical and periventricular white matter, likely seconda ry to small vessel ischemic disease. No large confluent infarction is seen. There is no evidence of h ydrocephalus, intracranial hemorrhage or extra-axial fluid collection. The calvarium and overlying soft tissues are unremarkable. The visualized paranasal sinuses and masto id air cells are well aerated. IMPRESSION: No evidence of acute intracranial abnormality. POS: [facility]
--- NOTE | 2017-10-13 23:15 | CT ---
CT OF THE CERVICAL SPINE WITHOUT CONTRAST: 10/13/17 COMPARISON: None. HISTORY: Fall from standing with head laceration and neck pain. TECHNIQUE: Multiple contiguous axial images were obtained in a CT of the cervical spine without contrast. Sagitt al and coronal reformats were performed. FINDINGS: There are mild degenerative changes in the mid cervical spine. Diffuse osteopenia is seen. The verteb ral bodies demonstrate normal height and alignment without acute fracture or subluxation. No preverte bral soft tissue swelling is seen. The posterior facets are well aligned. Normal alignment of the skull base with the cervical spine is seen. Emphysematous changes are seen in the lung apices. Calcifications are seen in the carotid arteries. IMPRESSION: No evidence of acute osseous abnormality of the cervical spine. POS: [facility]
[2017-10-13] MEDS ORDERED: Adacel (T-DAP) 0.5 ML VIAL ONE (23:32)
== END 2017-10-14 01:18 | disposition home or self-care (01) ==
LOC: ERS 22:07
DX: S01.01XA Laceration without foreign body of scalp, initial encounter (principal); I10 Essential (primary) hypertension; E78.5 Hyperlipidemia, unspecified; W19.XXXA Unspecified fall, initial encounter
CPT/HCPCS: 70450; 72125; 90471; 90715

== ENCOUNTER 2017-11-30 15:46 | Emergency (ER) | payer MEDICARE ==
--- NOTE | 2017-11-30 16:46 | CT ---
CT BRAIN WITHOUT CONTRAST 11/30/17 HISTORY: Trauma. Fall. COMPARISON: CT brain 10/13/17. FINDINGS: There is moderate atrophy. Mild ex vacuo dilatation of the ventricular system and extra-axial CSF spa michelle. No midline shift. No mass effect. No acute territorial infarct or hemorrhage. There is a left parieta l superficial soft tissue scalp contusion. 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 IMPRESSION: Left parietal superficial soft tissue scalp contusion, otherwise no acute intracranial abnormality. N o acute posttraumatic intracranial sequela. POS: [facility]
== END 2017-11-30 17:16 | disposition home or self-care (01) ==
LOC: ERS 15:46
DX: S09.90XA Unspecified injury of head, initial encounter (principal); E11.9 Type 2 diabetes mellitus without complications; M19.90 Unspecified osteoarthritis, unspecified site; I10 Essential (primary) hypertension; E78.5 Hyperlipidemia, unspecified; Z79.82 Long term (current) use of aspirin; Z79.899 Other long term (current) drug therapy; W19.XXXA Unspecified fall, initial encounter
CPT/HCPCS: 70450; 93005

== ENCOUNTER 2017-12-21 15:26 | Emergency (ER) | payer MEDICARE ==
[2017-12-21] MEDS ORDERED: HYDROcodone/Acetaminophen 5/325 mg Tablet ONE (16:52)
== END 2017-12-21 17:24 | disposition home or self-care (01) ==
LOC: ERS 15:26
DX: G89.29 Other chronic pain (principal); M79.672 Pain in left foot; I10 Essential (primary) hypertension; E78.5 Hyperlipidemia, unspecified; Z79.899 Other long term (current) drug therapy
CPT/HCPCS: 99283